=== PATIENT | male | born 1945 | race Caucasian/White ===

== ENCOUNTER 2018-09-20 16:37 | Emergency (ER) | payer BC, OTHER ==
[~2018-09-20] VITALS: Ht 170.2 cm; Wt 80.7 kg
[2018-09-20 16:41] VITALS: BP_SYST 157
[2018-09-20] MEDS ORDERED: ACETAMINOPHEN 500 MG TABLET PO ONE (17:00)
[2018-09-20] MEDS ORDERED: NACL 0.9% 1,000 ML IV ONE (17:00)
[2018-09-20 17:31] LABS: BASOPHILS % (AUTO) 0.6 % (0.0-2.0); EOSINOPHILS # (AUTO) 0.1 K/uL (0.0-0.4); EOSINOPHILS % (AUTO) 0.9 % (0.0-4.0); HEMATOCRIT 33.6 % (36-54); HEMOGLOBIN 11.5 g/dL (14.0-18.0); MEAN CORPUSCULAR HEMOGLOBIN 32 pg (27-31); MEAN CORPUSCULAR HGB CONC 34 % (32-36); MEAN CORPUSCULAR VOLUME 95 fL (79.0-98.0); MONOCYTES # (AUTO) 0.5 K/uL (0.0-1.0); MONOCYTES % (AUTO) 7.8 % (1.7-9.3); NEUTROPHILS # (AUTO) 4.5 K/uL (1.8-7.7); NEUTROPHILS % (AUTO) 73.7 % (40.0-70.0); PLATELET COUNT (AUTO) 174 K/uL (130-430); RED BLOOD CELL COUNT(AUTO) 3.54 MIL/uL (4.2-6.2); RED CELL DISTRIBUTION WIDTH 13.1 % (9.0-15.0); WHITE BLOOD COUNT (AUTO) 6.1 K/uL (4.8-10.8)
[2018-09-20 17:43] LABS: ANION GAP 10 (5-15); CALCIUM 8.9 mg/dL (8.4-11.0); CHLORIDE 99 mmol/L (98-107); CREATININE 2.06 mg/dL (0.55-1.30); POTASSIUM 4.7 mmol/L (3.5-5.1); SODIUM SERUM 132 mmol/L (136-145); UREA NITROGEN, BLOOD 35 mg/dL (8-21)
[2018-09-20 17:45] LABS: ALANINE AMINOTRANSFERASE 22 U/L (12-78); ALBUMIN 3.3 g/dL (3.4-4.8); ASPARTATE AMINOTRANSFERASE 17 U/L (10-37); TOTAL BILIRUBIN 0.2 mg/dL (0.0-1.0)
[2018-09-20 17:52] LABS: GLUCOSE 576 mg/dL (70-99)
[2018-09-20] MEDS ORDERED: INSULIN REGULAR, HUMAN 100 UNITS/ML, 10 ML VIAL SUBCUT ONE (18:00)
[2018-09-20] MEDS ORDERED: AMLO5TAB4 PO (18:45)
[2018-09-20] MEDS ORDERED: AMI200 PO (18:45)
[2018-09-20] MEDS ORDERED: CARV25TA55 PO (18:45)
[2018-09-20] MEDS ORDERED: PARO40TA80 PO (18:45)
[2018-09-20] MEDS ORDERED: LEVE500T9 PO (18:45)
[2018-09-20] MEDS ORDERED: APIX5TAB4 PO (18:45)
[2018-09-20] MEDS ORDERED: FENO160 PO (18:45)
[2018-09-20] MEDS ORDERED: BENA40TA8 PO (18:45)
[2018-09-20] MEDS ORDERED: BACITRACIN 1 GM OINT TP ONE (19:06)
[2018-09-20 19:42] VITALS: BP_SYST 139
[2018-09-20] MEDS ORDERED: LIDOCAINE/EPI 1% 1:100000 20 ML VIAL INJ ONE (23:34)
== END 2018-09-20 19:41 | disposition home or self-care (01) ==
LOC: SED 16:37
DX: S61.412A Laceration without foreign body of left hand, initial encounter (principal); S51.812A Laceration without foreign body of left forearm, initial encounter; S50.811A Abrasion of right forearm, initial encounter; S60.511A Abrasion of right hand, initial encounter; E11.65 Type 2 diabetes mellitus with hyperglycemia; E11.22 Type 2 diabetes mellitus with diabetic chronic kidney disease; N18.9 Chronic kidney disease, unspecified; Z79.899 Other long term (current) drug therapy; V49.49XA Driver injured in collision with other motor vehicles in traffic accident, initial encounter; Y93.89 Activity, other specified; Y92.411 Interstate highway as the place of occurrence of the external cause; Y99.8 Other external cause status
CPT/HCPCS: 36415; 80053; 82962; 85025; 93005; 96361; 96374; 99284; J1815; J7030

== ENCOUNTER 2019-07-20 09:32 | Inpatient (IN) | payer OTHER, SELFPAY ==
[~2019-07-20] VITALS: Ht 170.2 cm; Wt 76.3 kg
[2019-07-20] VITALS (10 sets, daily range): BP systolic 99–136
[~2019-07-20 09:32] MED LIST: AMI200 PO; AMLO5TAB4 PO; APIX5TAB4 PO; BENA40TA8 PO; CARV25TA55 PO; FENO160 PO; LEVE500T9 PO; PARO40TA80 PO
[2019-07-20 10:36] LABS: BASOPHILS % (AUTO) 0.7 % (0.0-2.0); EOSINOPHILS # (AUTO) 0.1 K/uL (0.0-0.4); EOSINOPHILS % (AUTO) 1.6 % (0.0-4.0); HEMATOCRIT 34.7 % (36-54); HEMOGLOBIN 11.4 g/dL (14.0-18.0); LYMPHOCYTES # (AUTO) 1.2 K/uL (1.0-5.5); LYMPHOCYTES % (AUTO) 16.5 % (20.5-51.5); MEAN CORPUSCULAR HEMOGLOBIN 32 pg (27-31); MEAN CORPUSCULAR HGB CONC 33 % (32-36); MEAN CORPUSCULAR VOLUME 96 fL (79.0-98.0); MONOCYTES # (AUTO) 0.6 K/uL (0.0-1.0); MONOCYTES % (AUTO) 8.7 % (1.7-9.3); NEUTROPHILS # (AUTO) 5.1 K/uL (1.8-7.7); NEUTROPHILS % (AUTO) 72.5 % (40.0-70.0); PLATELET COUNT (AUTO) 236 K/uL (130-430); RED BLOOD CELL COUNT(AUTO) 3.62 MIL/uL (4.2-6.2); RED CELL DISTRIBUTION WIDTH 15.6 % (9.0-15.0); WHITE BLOOD COUNT (AUTO) 7.1 K/uL (4.8-10.8)
[2019-07-20 10:42] LABS: ANION GAP 7 (5-15); CALCIUM 9.1 mg/dL (8.4-11.0); CHLORIDE 105 mmol/L (98-107); CREATININE 1.25 mg/dL (0.55-1.30); GLUCOSE 107 mg/dL (70-99); POTASSIUM 3.5 mmol/L (3.5-5.1); SODIUM SERUM 140 mmol/L (136-145); UREA NITROGEN, BLOOD 19 mg/dL (8-21)
[2019-07-20 10:49] LABS: ALANINE AMINOTRANSFERASE 31 U/L (12-78); ALBUMIN 2.8 g/dL (3.4-4.8); ASPARTATE AMINOTRANSFERASE 23 U/L (10-37); TOTAL BILIRUBIN 0.5 mg/dL (0.0-1.0)
[2019-07-20 11:48] LABS: CHOLESTEROL 161 mg/dL (<200); HDL CHOLESTEROL 67 mg/dL (>45); LDL CHOLESTEROL 72 mg/dL (<100); TRIGLYCERIDES 94 mg/dL (30-150)
[2019-07-20] MEDS ORDERED: D5NS 1,000 ML IV ONE (12:00)
[2019-07-20] MEDS ORDERED: cefTRIAXone 1 GM VIAL IM ONE (12:00)
[2019-07-20 12:54] LABS: BILIRUBIN,URINE NEGATIVE (NEGATIVE); BLOOD, URINE NEGATIVE (NEGATIVE); COLOR,URINE YELLOW (YELLOW); GLUCOSE,URINE NEGATIVE (NEGATIVE); KETONES,URINE NEGATIVE (NEGATIVE); LEUKOCYTE ESTERASE ,URINE NEGATIVE (NEGATIVE); NITRITE, URINE NEGATIVE (NEGATIVE); PH,URINE 7.5 (5.0-8.0); PROTEIN URINE 1+ (NEGATIVE); UROBILINOGEN,URINE 0.2 (0.2-1.0)
[2019-07-20 12:57] LABS: CLARITY/URINE SLIGHTLY HAZY (CLEAR)
[2019-07-20 13:11] LABS: RBC,URINE NONE SEEN /HPF (0-3)
[2019-07-20 13:11] LABS: FREE T4 (FREE THYROXINE) 1.5 ng/dl (0.8-1.5); THYROID STIMULATING HORMONE 8.22 uIu/mL (0.36-3.74)
[2019-07-20 13:12] LABS: BACTERIA,URINE RARE /HPF (None Seen); MUCUS,URINE 1+ /LPF (None Seen); WBC,URINE 0-3 /HPF (0-3)
[2019-07-20] MEDS ORDERED: D5W 1,000 ML IV PRN (13:28)
[2019-07-20] MEDS ORDERED: HYDROcodone/ACETAMIN 10-325 MG TAB PO PRN (13:30)
[2019-07-20] MEDS ORDERED: HYDROcodone/ACETAMIN 5-325 MG TAB (NORCO/ VICODIN) PO PRN (13:30)
[2019-07-20] MEDS ORDERED: LORazepam 2 MG/ML VIAL IVP PRN (13:30)
[2019-07-20] MEDS ORDERED: GLUCOSE 15 GM GEL (in 37.5 GM TUBE) PO PRN (13:30)
[2019-07-20] MEDS ORDERED: ONDANSETRON HCL 4 MG/2 ML VIAL IVP PRN (13:30)
[2019-07-20] MEDS ORDERED: ACETAMINOPHEN 325 MG TABLET PO PRN (13:30)
[2019-07-20] MEDS ORDERED: DEXTROSE 50% JECT 50 ML DISP.SYRIN IVP PRN (13:30)
[2019-07-20] MEDS: APIXABAN 2.5 MG TABLET PO SCH (20:27)
[2019-07-20] MEDS: levETIRAcetam 500 MG TABLET PO SCH (20:27)
[2019-07-20] MEDS: INSULIN REGULAR, HUMAN 100 UNITS/ML, 10 ML VIAL (humuLIN R) SUBCUT PRN (20:46)
[2019-07-20] MEDS ORDERED: CARVEDILOL 25 MG TABLET (COREG) PO SCH (21:00)
[2019-07-20] MEDS: D5NS 1,000 ML IV SCH (21:03)
[2019-07-21] VITALS (19 sets, daily range): BP systolic 109–157
[2019-07-21] MEDS: D5NS 1,000 ML IV SCH ×2 (06:10→17:13)
[2019-07-21] MEDS: INSULIN REGULAR, HUMAN 100 UNITS/ML, 10 ML VIAL (humuLIN R) SUBCUT PRN ×4 (06:21→21:15)
[2019-07-21 06:32] LABS: BASOPHILS % (AUTO) 0.5 % (0.0-2.0); EOSINOPHILS # (AUTO) 0.1 K/uL (0.0-0.4); EOSINOPHILS % (AUTO) 0.7 % (0.0-4.0); HEMATOCRIT 32.8 % (36-54); HEMOGLOBIN 10.7 g/dL (14.0-18.0); LYMPHOCYTES # (AUTO) 0.9 K/uL (1.0-5.5); LYMPHOCYTES % (AUTO) 10.8 % (20.5-51.5); MEAN CORPUSCULAR HEMOGLOBIN 32 pg (27-31); MEAN CORPUSCULAR HGB CONC 33 % (32-36); MEAN CORPUSCULAR VOLUME 98 fL (79.0-98.0); MONOCYTES # (AUTO) 0.9 K/uL (0.0-1.0); MONOCYTES % (AUTO) 11.6 % (1.7-9.3); NEUTROPHILS # (AUTO) 6.1 K/uL (1.8-7.7); NEUTROPHILS % (AUTO) 76.4 % (40.0-70.0); PLATELET COUNT (AUTO) 190 K/uL (130-430); RED BLOOD CELL COUNT(AUTO) 3.35 MIL/uL (4.2-6.2); RED CELL DISTRIBUTION WIDTH 15.7 % (9.0-15.0); WHITE BLOOD COUNT (AUTO) 7.9 K/uL (4.8-10.8)
[2019-07-21 06:51] LABS: ANION GAP 7 (5-15); CALCIUM 7.9 mg/dL (8.4-11.0); CHLORIDE 109 mmol/L (98-107); CREATININE 1.08 mg/dL (0.55-1.30); GLUCOSE 188 mg/dL (70-99); POTASSIUM 4.2 mmol/L (3.5-5.1); SODIUM SERUM 139 mmol/L (136-145); THYROID STIMULATING HORMONE 2.21 uIu/mL (0.36-3.74); UREA NITROGEN, BLOOD 14 mg/dL (8-21)
[2019-07-21] MEDS: AMIODARONE HCL 200 MG TABLET PO SCH (08:11)
[2019-07-21] MEDS: levETIRAcetam 500 MG TABLET PO SCH ×2 (08:11→21:18)
[2019-07-21] MEDS: LISINOPRIL 20 MG TABLET PO SCH (08:12)
[2019-07-21] MEDS: amLODIPine BESYLATE 5 MG TABLET PO SCH (08:12)
[2019-07-21] MEDS: PARoxetine HCL 20 MG TABLET PO SCH (08:13)
[2019-07-21] MEDS: CARVEDILOL 12.5 MG TABLET (COREG) PO SCH ×2 (08:13→21:18)
[2019-07-21] MEDS: APIXABAN 2.5 MG TABLET PO SCH ×2 (08:14→21:16)
[2019-07-21] MEDS ORDERED: BENAZEPRIL HCL 20 MG TABLET (LOTENSIN) PO SCH (09:00)
[2019-07-21] MEDS ORDERED: FENOFIBRATE 160 MG TABLET PO SCH (09:00)
[2019-07-21] MEDS: cefTRIAXone 1 GM in D5W 50 ML IV SCH (14:06)
[2019-07-21] MEDS: INSULIN GLARGINE 100 UNITS/ML 10 ML VIAL SUBCUT SCH (21:16)
[2019-07-22] MEDS: D5NS 1,000 ML IV SCH ×4 (03:45→23:03)
[2019-07-22 04:00] VITALS: BP_SYST 143
[2019-07-22] MEDS: INSULIN REGULAR, HUMAN 100 UNITS/ML, 10 ML VIAL (humuLIN R) SUBCUT PRN ×3 (06:37→21:07)
[2019-07-22 07:28] LABS: BASOPHILS # (AUTO) 0.1 K/uL (0.0-0.2); BASOPHILS % (AUTO) 0.9 % (0.0-2.0); EOSINOPHILS # (AUTO) 0.1 K/uL (0.0-0.4); EOSINOPHILS % (AUTO) 2.4 % (0.0-4.0); HEMATOCRIT 31.2 % (36-54); HEMOGLOBIN 10.4 g/dL (14.0-18.0); LYMPHOCYTES % (AUTO) 17.4 % (20.5-51.5); MEAN CORPUSCULAR HEMOGLOBIN 32 pg (27-31); MEAN CORPUSCULAR HGB CONC 34 % (32-36); MEAN CORPUSCULAR VOLUME 96 fL (79.0-98.0); MONOCYTES # (AUTO) 0.7 K/uL (0.0-1.0); NEUTROPHILS # (AUTO) 3.7 K/uL (1.8-7.7); NEUTROPHILS % (AUTO) 67.3 % (40.0-70.0); PLATELET COUNT (AUTO) 187 K/uL (130-430); RED BLOOD CELL COUNT(AUTO) 3.25 MIL/uL (4.2-6.2); RED CELL DISTRIBUTION WIDTH 15.5 % (9.0-15.0); WHITE BLOOD COUNT (AUTO) 5.6 K/uL (4.8-10.8)
[2019-07-22 08:01] LABS: ALANINE AMINOTRANSFERASE 16 U/L (12-78); ALBUMIN 1.9 g/dL (3.4-4.8); ANION GAP 4 (5-15); ASPARTATE AMINOTRANSFERASE 15 U/L (10-37); C-REACTIVE PROTEIN QUANT 1.9 mg/dL (0-0.5); CALCIUM 7.8 mg/dL (8.4-11.0); CHLORIDE 105 mmol/L (98-107); GLUCOSE 195 mg/dL (70-99); POTASSIUM 3.5 mmol/L (3.5-5.1); SODIUM SERUM 134 mmol/L (136-145); TOTAL BILIRUBIN 0.4 mg/dL (0.0-1.0); UREA NITROGEN, BLOOD 11 mg/dL (8-21)
[2019-07-22] MEDS: AMIODARONE HCL 200 MG TABLET PO SCH (08:28)
[2019-07-22] MEDS: CARVEDILOL 12.5 MG TABLET (COREG) PO SCH ×2 (08:29→21:14)
[2019-07-22] MEDS: APIXABAN 2.5 MG TABLET PO SCH ×2 (08:29→21:05)
[2019-07-22] MEDS: levETIRAcetam 500 MG TABLET PO SCH ×2 (08:29→21:02)
[2019-07-22] MEDS: amLODIPine BESYLATE 5 MG TABLET PO SCH (08:29)
[2019-07-22 08:30] VITALS: BP_SYST 125
[2019-07-22] MEDS: PARoxetine HCL 20 MG TABLET PO SCH (08:30)
[2019-07-22] MEDS: LISINOPRIL 20 MG TABLET PO SCH (08:30)
[2019-07-22 08:53] LABS: ERYTHROCYTE SEDIMENTATION RATE 87 MM/HR (0-15)
[2019-07-22 12:02] VITALS: BP_SYST 137
[2019-07-22] MEDS ORDERED: LIP20 PO (12:18)
[2019-07-22] MEDS: cefTRIAXone 1 GM in D5W 50 ML IV SCH (12:27)
[2019-07-22 15:25] VITALS: BP_SYST 153
[2019-07-22 16:18] VITALS: BP_SYST 153
[2019-07-22] MEDS: INSULIN GLARGINE 100 UNITS/ML 10 ML VIAL SUBCUT SCH (21:08)
[2019-07-23] VITALS: BP_SYST 132
[2019-07-23] MEDS ORDERED: VANCOMYCIN HCL 1 GM/NS PREMIX 250 ML IV ONE (01:00)
[2019-07-23] MEDS ORDERED: VANCOMYCIN HCL 1000 MG/VIAL IV ONE (04:49)
[2019-07-23 08:00] VITALS: BP_SYST 138
[2019-07-23] MEDS: PARoxetine HCL 20 MG TABLET PO SCH (08:30)
[2019-07-23] MEDS: amLODIPine BESYLATE 5 MG TABLET PO SCH (08:30)
[2019-07-23] MEDS: levETIRAcetam 500 MG TABLET PO SCH (08:31)
[2019-07-23] MEDS: APIXABAN 2.5 MG TABLET PO SCH (08:31)
[2019-07-23] MEDS: AMIODARONE HCL 200 MG TABLET PO SCH (08:32)
[2019-07-23] MEDS ORDERED: PIPERACILLIN/TAZO 3.375/DEX-IS 50 ML IV SCH (09:30)
[2019-07-23] MEDS ORDERED: levETIRAcetam 500 MG TABLET PO ONE (09:45)
[2019-07-23] MEDS: CARVEDILOL 12.5 MG TABLET (COREG) PO SCH (11:47)
[2019-07-23] MEDS: LISINOPRIL 20 MG TABLET PO SCH (11:48)
[2019-07-23 12:00] VITALS: BP_SYST 136
[2019-07-23 15:15] VITALS: BP_SYST 135
[2019-07-23] MEDS ORDERED: VANCOMYCIN HCL 750 MG in NS 250 ML IV SCH (17:00)
[2019-07-23] MEDS ORDERED: levETIRAcetam 500 MG TABLET PO SCH (21:00)
== END 2019-07-23 16:45 | disposition home or self-care (01) | DRG 637 ==
LOC: SED 09:32 → EEVIPCON 11:58 → SMU 11:58 → SIC 15:03 → SMU 07-21 15:42 → STU 07-21 17:02
PROVIDERS: ADMIT Internal Medicine Hospice and Palliative Medicine; ATTEND Internal Medicine Hospice and Palliative Medicine
DX: E11.649 Type 2 diabetes mellitus with hypoglycemia without coma (principal); G93.41 Metabolic encephalopathy; J96.00 Acute respiratory failure, unspecified whether with hypoxia or hypercapnia; E43 Unspecified severe protein-calorie malnutrition; E83.52 Hypercalcemia; D64.9 Anemia, unspecified; I48.91 Unspecified atrial fibrillation; E11.65 Type 2 diabetes mellitus with hyperglycemia; E83.51 Hypocalcemia; I11.9 Hypertensive heart disease without heart failure; T68.XXXA Hypothermia, initial encounter; E66.9 Obesity, unspecified; Z20.828 Contact with and (suspected) exposure to other viral communicable diseases; E78.5 Hyperlipidemia, unspecified; I25.10 Atherosclerotic heart disease of native coronary artery without angina pectoris; Z79.01 Long term (current) use of anticoagulants; Z79.899 Other long term (current) drug therapy; Z85.828 Personal history of other malignant neoplasm of skin; Z68.26 Body mass index [BMI] 26.0-26.9, adult
CPT/HCPCS: 36415; 36600; 70551; 71045; 72141; 80048; 80053; 80061; 81000-TC; 82550-TC; 82803-TC; 82962; 83036; 83605; 83880; 84439; 84443-TC; 84484; 85025; 85651-TC; 86140; 87040-TC; 87081; 93005; 93306; 96360; 96372; 99291; 99292; G0378; J0696; J1815; J2543; J3370; J7042; J7050; J7060; U0003-CS

== ENCOUNTER 2021-01-01 18:13 | Inpatient (IN) | payer OTHER, SELFPAY ==
[~2021-01-01] VITALS: Ht 172.7 cm; Wt 91.2 kg
[~2021-01-01 18:13] MED LIST changes: -AMI200 PO; +AMIO200T66 PO; +LIP20 PO; -PARO40TA80 PO
--- NOTE | 2021-01-01 18:25 | NUR ---
Placed in room 6 . Placed on cheese packer, blood pressure machine and pulse oximeter. To gown for exam. Side rails up. Report given to ILAN Louise.
--- NOTE | 2021-01-01 18:29 | NUR ---
Triaged and placed in room 6 for evaluation
--- NOTE | 2021-01-01 18:30 | NUR ---
Patient BIB son for chief complaint riley LE swelling. Fluid noted coming from both legs. Patient also dyspneic upon arrival to room; not on home O2. Placed on 6L via nasal cannula; oxygen saturation improved to 94% from 87%. EKG completed. BP and respiratory rate elevated. Placed on cafeteria monitor. Will continue to monitor.
--- NOTE | 2021-01-01 18:32 | NUR ---
Dr Hassan to bedside to evaluate patient
[2021-01-01 18:33] VITALS: BP_SYST 184
[2021-01-01] MEDS ORDERED: FUROSEMIDE 100 MG/10 ML VIAL IVP ONE (18:45)
--- NOTE | 2021-01-01 18:58 | NUR ---
RT at bedside to collect ABG
--- NOTE | 2021-01-01 18:59 | NUR ---
# 18 gauge angiocath placed to R AC. Use of asceptic technique. Opsite placed over site. Blood return noted. Blood for lab drawn from site. Flushed with 10 cc of normal saline. No evidence of infiltration noted. Patient tolerated well.
[2021-01-01] MEDS ORDERED: PIPERACILLIN/TAZO 3.375 GM in NS 50 ML IV ONE (19:00)
[2021-01-01] MEDS ORDERED: VANCOMYCIN HCL 1,000 MG in NS 250 ML IV ONE (19:00)
[2021-01-01] MEDS ORDERED: PIPERACILLIN/TAZOBACTAM 3.375 GM/VIAL (ZOSYN) IV ONE (19:05)
[2021-01-01] MEDS ORDERED: VANCOMYCIN HCL 1000 MG/VIAL IV ONE (19:05)
[2021-01-01] MEDS ORDERED: NITROGLYCERIN 250 ML IV ONE (19:15)
--- NOTE | 2021-01-01 19:16 | NUR ---
COVID swab collected at bedside and sent to lab. Report given to Yang TALAVERA to assume care.
--- NOTE | 2021-01-01 19:35 | NUR ---
# 22 gauge angiocath placed to l wrist. Use of asceptic technique. Opsite placed over site. Blood for lab drawn from site. Flushed with 10 cc of normal saline. No evidence of infiltration noted. Patient tolerated well.
--- NOTE | 2021-01-01 19:41 | NUR ---
assumed care of pt from [facility]
[2021-01-01 19:45] LABS: BASOPHILS # (AUTO) 0.1 K/uL (0.0-0.2); BASOPHILS % (AUTO) 0.7 % (0.0-2.0); EOSINOPHILS # (AUTO) 0.1 K/uL (0.0-0.4); EOSINOPHILS % (AUTO) 1.5 % (0.0-4.0); HEMATOCRIT 30.9 % (36-54); HEMOGLOBIN 10.4 g/dL (14.0-18.0); LYMPHOCYTES # (AUTO) 0.7 K/uL (1.0-5.5); MEAN CORPUSCULAR HEMOGLOBIN 33 pg (27-31); MEAN CORPUSCULAR HGB CONC 34 % (32-36); MEAN CORPUSCULAR VOLUME 97 fL (79.0-98.0); MONOCYTES # (AUTO) 0.5 K/uL (0.0-1.0); MONOCYTES % (AUTO) 6.8 % (1.7-9.3); NEUTROPHILS # (AUTO) 6.7 K/uL (1.8-7.7); PLATELET COUNT (AUTO) 164 K/uL (130-430); RED BLOOD CELL COUNT(AUTO) 3.19 MIL/uL (4.2-6.2); RED CELL DISTRIBUTION WIDTH 13.7 % (9.0-15.0); WHITE BLOOD COUNT (AUTO) 8.1 K/uL (4.8-10.8)
--- NOTE | 2021-01-01 20:00 | NUR ---
# 16 FR Thorne catheter with use of sterile technique. Immediate return of 500 cc YELLOW urine noted. Bedside drainage bag placed below level of bladder. Urine sample collected and sent to lab. Pt tolerated procedure WELL.
[2021-01-01 20:05] LABS: ANION GAP 6 (5-15); CALCIUM 9.3 mg/dL (8.4-11.0); CHLORIDE 110 mmol/L (98-107); GLUCOSE 182 mg/dL (70-99); POTASSIUM 4.4 mmol/L (3.5-5.1); SODIUM SERUM 143 mmol/L (136-145); UREA NITROGEN, BLOOD 36 mg/dL (8-21)
[2021-01-01 20:12] LABS: ALANINE AMINOTRANSFERASE 38 U/L (12-78); ASPARTATE AMINOTRANSFERASE 30 U/L (10-37); TOTAL BILIRUBIN 0.6 mg/dL (0.0-1.0)
[2021-01-01 20:13] LABS: PROTHROMBIN TIME 10.7 SECS (9.5-12.5)
[2021-01-01] MEDS ORDERED: DOCU-144 PO (20:17)
[2021-01-01] MEDS ORDERED: BENA40TA65 PO (20:17)
[2021-01-01] MEDS ORDERED: AMLO5TAB4 PO (20:17)
[2021-01-01] MEDS ORDERED: LIP20 PO (20:17)
[2021-01-01] MEDS ORDERED: COR12.5 PO (20:17)
[2021-01-01] MEDS ORDERED: ACET12.55 PO (20:17)
[2021-01-01] MEDS ORDERED: AMIO200T66 PO (20:17)
[2021-01-01] MEDS ORDERED: APIX5TAB PO (20:17)
--- NOTE | 2021-01-01 20:24 | NUR ---
Perez-SON [phone]
--- NOTE | 2021-01-01 20:24 | NUR ---
Pt is full code
--- NOTE | 2021-01-01 20:27 | NUR ---
Medication reconciliation completed with information provided by son. Any prior medication reconciliation on file was reviewed and corrected.
--- NOTE | 2021-01-01 20:27 | NUR ---
belongings list complete
[2021-01-01 20:40] LABS: BILIRUBIN,URINE NEGATIVE (NEGATIVE); BLOOD, URINE 1+ (NEGATIVE); CLARITY/URINE CLEAR (CLEAR); COLOR,URINE YELLOW (YELLOW); GLUCOSE,URINE NEGATIVE (NEGATIVE); KETONES,URINE NEGATIVE (NEGATIVE); LEUKOCYTE ESTERASE ,URINE NEGATIVE (NEGATIVE); NITRITE, URINE NEGATIVE (NEGATIVE); PROTEIN URINE 1+ (NEGATIVE); UROBILINOGEN,URINE 0.2 (0.2-1.0)
[2021-01-01 20:58] LABS: BACTERIA,URINE None Seen /HPF (None Seen); MUCUS,URINE None Seen /LPF (None Seen); RBC,URINE 0-3 /HPF (0-3); WBC,URINE NONE SEEN /HPF (0-3)
[2021-01-01] MEDS ORDERED: BACITRACIN 1 GM OINT TP ONE (21:06)
--- NOTE | 2021-01-01 22:01 | NUR ---
Spoke to Dr. Warren. Will titrate Nitro to 2mcg/min and discontinue prior to transfer to floor.
[2021-01-01] MEDS ORDERED: HYDROcodone/ACETAMIN 5-325 MG TAB (NORCO/ VICODIN) PO PRN (23:30)
[2021-01-01] MEDS ORDERED: MORPHINE 4 MG INJ. 4 MG/ML VIAL IVP PRN (23:30)
[2021-01-01] MEDS ORDERED: NALOXONE HCL 0.4 MG/ML AMP (NARCAN) IVP PRN (23:30)
[2021-01-01] MEDS ORDERED: ACETAMINOPHEN 325 MG TABLET PO PRN (23:30)
--- NOTE | 2021-01-01 23:44 | NUR ---
Transfer to 114b via ACLS protocol. Licensed nurse present. IV present no signs or symptoms of infiltration.
[2021-01-01] MEDS ORDERED: hydrALAZINE HCL 20 MG/ML VIAL IVP PRN (23:45)
--- NOTE | 2021-01-02 00:05 | NUR ---
ADMIT NOTE Received pt from ER to the floor with a diagnosis of CHF. Admission process initiated. patient oriented to pain management, safety and call light-teach back done.
[2021-01-02 00:25] VITALS: BP_SYST 157
[2021-01-02] MEDS: ALBUTEROL SULFATE 0.083% 2.5 MG/3 ML VIAL.NEB INH PRN (00:58)
--- NOTE | 2021-01-02 01:02 | NUR ---
CONSULTATION CALLED FOR DR. PONCE FOR CONSULT OF CHF ORDER BY DR. CORTEZ SPOKE WITH TAY
--- NOTE | 2021-01-02 02:07 | NUR ---
initial notes pt is awake, alert, oriented x 3, c/o sob and bilateral leg swelling, both legs is also weeping with clear liquid. stable vital sign. explain plan of care,orient to room and call light. pt verbalized understanding. call light in reach. will monitor.
[2021-01-02 02:15] VITALS: BP_SYST 157
[2021-01-02 03:11] VITALS: BP_SYST 134
[2021-01-02] MEDS: NORMAL SALINE 5 ML DISP.SYRIN IVF SCH ×3 (05:37→22:00)
--- NOTE | 2021-01-02 06:16 | NUR ---
closing: pt is awake, alert. stable. on 4l Oxymizer, tolerating well. needs attended the whole shift, call with the pt. will continue to monitor until sbar reporting given to am rn.
[2021-01-02 06:32] LABS: BASOPHILS % (AUTO) 0.3 % (0.0-2.0); EOSINOPHILS % (AUTO) 0.1 % (0.0-4.0); HEMATOCRIT 29.8 % (36-54); HEMOGLOBIN 10.1 g/dL (14.0-18.0); LYMPHOCYTES # (AUTO) 0.4 K/uL (1.0-5.5); LYMPHOCYTES % (AUTO) 3.8 % (20.5-51.5); MEAN CORPUSCULAR HEMOGLOBIN 33 pg (27-31); MEAN CORPUSCULAR HGB CONC 34 % (32-36); MEAN CORPUSCULAR VOLUME 97 fL (79.0-98.0); MONOCYTES # (AUTO) 0.7 K/uL (0.0-1.0); MONOCYTES % (AUTO) 6.3 % (1.7-9.3); NEUTROPHILS # (AUTO) 9.6 K/uL (1.8-7.7); NEUTROPHILS % (AUTO) 89.5 % (40.0-70.0); PLATELET COUNT (AUTO) 152 K/uL (130-430); RED BLOOD CELL COUNT(AUTO) 3.07 MIL/uL (4.2-6.2); RED CELL DISTRIBUTION WIDTH 14.1 % (9.0-15.0); WHITE BLOOD COUNT (AUTO) 10.7 K/uL (4.8-10.8)
[2021-01-02 08:00] VITALS: BP_SYST 128
[2021-01-02] MEDS: FUROSEMIDE 40 MG TABLET PO SCH (08:04)
--- NOTE | 2021-01-02 11:47 | NUR ---
Nutrition Update Ravinder Scale 16 noted. Pt admitted for CHF. Diet: regular BMI: 29.6 kg/m2 RD to follow per nutrition care standards.
[2021-01-02 12:00] VITALS: BP_SYST 139
[2021-01-02] MEDS ORDERED: ACETAMINOPHEN 325 MG TABLET PO PRN (12:15)
[2021-01-02] MEDS ORDERED: HYDROcodone/ACETAMIN 10-325 MG TAB PO PRN (12:15)
[2021-01-02] MEDS ORDERED: ONDANSETRON HCL 4 MG/2 ML VIAL IVP PRN (12:15)
[2021-01-02] MEDS ORDERED: NALOXONE HCL 0.4 MG/ML AMP (NARCAN) IVP PRN ×2 (12:15)
[2021-01-02] MEDS ORDERED: HYDROcodone/ACETAMIN 5-325 MG TAB (NORCO/ VICODIN) PO PRN (12:15)
[2021-01-02] MEDS ORDERED: LORazepam 2 MG/ML VIAL IVP PRN (12:15)
--- NOTE | 2021-01-02 12:30 | NUR ---
CONSULTATION PAGED REASON FOR CONSULTATION:CELLULITIS WAS CONSULT CALED?Y PERSON WHO WAS NOTIFIED:GONZÁLEZ CONSULTING PHYSICIAN:ERIC VALLEJO PEGGER SPECIALTY:INFECTIOUS DISEASE PEGGER PHONE NUMBER:[phone] REQUESTING PHYSICIAN:GRETCHEN BUSTAMANTE
--- NOTE | 2021-01-02 12:36 | NUR ---
CONSULTATION PAGED REASON FOR CONSULTATION:PEG WAS CONSULT CALED?Y PERSON WHO WAS NOTIFIEDSTEPHANIE: CONSULTING PHYSICIAN:CATRACHO BROOKS (SUSANNE RAMIREZ TESTS SUPERINTENDENT) STORE CLERK SPECIALTY:NEPHRO STORE CLERK PHONE [phone]: REQUESTING PHYSICIAN:GRETCHEN BUSTAMANTE
[2021-01-02 13:18] LABS: POTASSIUM 4.2 mmol/L (3.5-5.1); SODIUM SERUM 141 mmol/L (136-145)
[2021-01-02 13:19] LABS: ANION GAP 12 (5-15); ASPARTATE AMINOTRANSFERASE 25 U/L (10-37); CALCIUM 8.2 mg/dL (8.4-11.0); CHLORIDE 107 mmol/L (98-107); CREATININE 1.91 mg/dL (0.55-1.30); GLUCOSE 202 mg/dL (70-99); TOTAL BILIRUBIN 0.6 mg/dL (0.0-1.0); UREA NITROGEN, BLOOD 35 mg/dL (8-21)
[2021-01-02 13:20] LABS: ALANINE AMINOTRANSFERASE 30 U/L (12-78); ALBUMIN 2.8 g/dL (3.4-4.8)
--- NOTE | 2021-01-02 15:19 | NUR ---
P.T. NOTES P.T. EVAL COMPLETED; REFER TO EVAL FOR DETAILS.
[2021-01-02] MEDS ORDERED: ALBUMIN HUMAN 25% 100 ML IV ONE (15:45)
[2021-01-02 16:00] VITALS: BP_SYST 134
--- NOTE | 2021-01-02 17:33 | NUR ---
1733 Spoke to Eriberto Rice to report trop=0.330. No new orders made by .
[2021-01-02] MEDS: PIPERACILLIN/TAZO 3.375/DEX-IS 50 ML IV SCH ×2 (17:56→23:31)
--- NOTE | 2021-01-02 19:10 | NUR ---
OPENING NOTES PATIENT RESTING, HOB ELEVATED. NO SIGNS OF RESPIRATORY DISTRESS NOTED. CALL LIGHT WITHIN REACH, BED ALARM ON, BED AT LOWEST POSITION, BED LOCKED. CERDA CATHETER IN PLACE, NO KINKS, NO LOOPS, BAG NOT TOUCHING THE FLOOR. DISCUSSED PLAN OF CARE WITH PATIENT. FALL, RESPIRATORY, ASPIRATION AND SAFETY PRECAUTIONS IN PLACE. WILL CONTINUE TO MONITOR.
[2021-01-02] MEDS: levETIRAcetam 500 MG TABLET PO SCH (20:36)
[2021-01-02] MEDS: DOCUSATE SODIUM 100 MG CAPSULE PO SCH (20:36)
[2021-01-02] MEDS: ATORVASTATIN 20 MG TABLET PO SCH (20:36)
[2021-01-02] MEDS: lisinopriL 20 MG TABLET PO SCH (20:38)
[2021-01-02] MEDS: CARVEDILOL 6.25 MG TABLET (COREG) PO SCH (20:39)
[2021-01-02] MEDS: APIXABAN 2.5 MG TABLET PO SCH (20:40)
[2021-01-02] MEDS ORDERED: BENAZEPRIL HCL 20 MG TABLET (LOTENSIN) PO SCH (21:00)
--- NOTE | 2021-01-02 22:30 | NUR ---
SPOKE TO WILMER LU. UPDATED ON PATIENT'S STATUS AND SON HOPES TO SPEAK TO CARDIOLOGY CONSULT AND PULMONARY CONSULT.
--- NOTE | 2021-01-02 23:53 | NUR ---
VOICEMAIL LEFT WITH DR. KOROMA, AWAITING CALL BACK.
--- NOTE | 2021-01-03 00:05 | NUR ---
SPOKE TO DR. KOROMA, RECEIVED NEW ORDERS FOR ACCU CHECK ACHS WITH SLIDING SCALE OF REGULAR INSULIN, UPDATED THAT PATIENT HAS BLOOD SUGAR OF 203.
--- NOTE | 2021-01-03 00:08 | NUR ---
HIGH ALERT NOTE: Called Dr. KOROMA back at [phone] identified within the medical roster to verify physician authenticity.
[2021-01-03] MEDS ORDERED: GLUCOSE (DEXTROSE) ORAL GEL -Adults PO PRN (00:15)
[2021-01-03] MEDS ORDERED: DEXTROSE 50% JECT 50 ML DISP.SYRIN IVP PRN (00:15)
--- NOTE | 2021-01-03 00:24 | NUR ---
PATIENT RESTING, EYES CLOSED. NO DISTRESS NOTED. WILL CONTINUE TO MONITOR.
[2021-01-03 00:29] VITALS: BP_SYST 125
[2021-01-03] MEDS: INSULIN REGULAR, HUMAN 100 UNITS/ML, 10 ML VIAL (humuLIN R) SUBCUT PRN ×3 (00:29→17:24)
[2021-01-03] MEDS: ALBUTEROL SULFATE 0.083% 2.5 MG/3 ML VIAL.NEB INH PRN ×4 (01:13→11:12)
[2021-01-03] MEDS: NORMAL SALINE 5 ML DISP.SYRIN IVF SCH ×3 (06:03→12:23)
[2021-01-03] MEDS: PIPERACILLIN/TAZO 3.375/DEX-IS 50 ML IV SCH ×3 (06:03→17:17)
--- NOTE | 2021-01-03 07:10 | NUR ---
CLOSING NOTES PATIENT RESTING, HOB ELEVATED. NO SIGNS OF RESPIRATORY DISTRESS NOTED. CALL LIGHT WITHIN REACH, BED ALARM ON, BED AT LOWEST POSITION, BED LOCKED. CERDA CATHETER IN PLACE, NO KINKS, NO LOOPS, BAG NOT TOUCHING THE FLOOR. FALL, RESPIRATORY, ASPIRATION AND SAFETY PRECAUTIONS IN PLACE THROUGHOUT SHIFT. ALL NEEDS MET THROUGHOUT SHIFT. WILL ENDORSE CARE TO ONCOMING SHIFT.
[2021-01-03 07:25] LABS: BASOPHILS % (AUTO) 0.5 % (0.0-2.0); EOSINOPHILS # (AUTO) 0.1 K/uL (0.0-0.4); EOSINOPHILS % (AUTO) 0.7 % (0.0-4.0); HEMATOCRIT 26.4 % (36-54); HEMOGLOBIN 8.9 g/dL (14.0-18.0); LYMPHOCYTES # (AUTO) 0.5 K/uL (1.0-5.5); LYMPHOCYTES % (AUTO) 4.8 % (20.5-51.5); MEAN CORPUSCULAR HEMOGLOBIN 33 pg (27-31); MEAN CORPUSCULAR HGB CONC 34 % (32-36); MEAN CORPUSCULAR VOLUME 97 fL (79.0-98.0); MONOCYTES # (AUTO) 0.7 K/uL (0.0-1.0); MONOCYTES % (AUTO) 7.9 % (1.7-9.3); NEUTROPHILS # (AUTO) 8.2 K/uL (1.8-7.7); NEUTROPHILS % (AUTO) 86.1 % (40.0-70.0); PLATELET COUNT (AUTO) 139 K/uL (130-430); RED BLOOD CELL COUNT(AUTO) 2.73 MIL/uL (4.2-6.2); RED CELL DISTRIBUTION WIDTH 14.1 % (9.0-15.0); WHITE BLOOD COUNT (AUTO) 9.5 K/uL (4.8-10.8)
[2021-01-03 08:00] VITALS: BP_SYST 121
[2021-01-03] MEDS ORDERED: amLODIPine BESYLATE 5 MG TABLET PO SCH (09:00)
[2021-01-03] MEDS ORDERED: FENOFIBRATE 160 MG TABLET PO SCH (09:00)
[2021-01-03] MEDS ORDERED: AMIODARONE HCL 200 MG TABLET PO SCH (09:00)
[2021-01-03] MEDS: DOCUSATE SODIUM 100 MG CAPSULE PO SCH (09:37)
[2021-01-03] MEDS: APIXABAN 2.5 MG TABLET PO SCH (09:38)
[2021-01-03] MEDS: FENOFIBRATE NANOCRYSTALLIZED 48 MG TABLET (TRICOR) PO SCH (09:39)
[2021-01-03] MEDS: FUROSEMIDE 40 MG TABLET PO SCH (09:39)
[2021-01-03] MEDS: levETIRAcetam 500 MG TABLET PO SCH (09:40)
[2021-01-03] MEDS: CARVEDILOL 6.25 MG TABLET (COREG) PO SCH ×2 (09:40→23:57)
[2021-01-03 09:44] LABS: ALANINE AMINOTRANSFERASE 24 U/L (12-78); ALBUMIN 2.6 g/dL (3.4-4.8); ANION GAP 8 (5-15); ASPARTATE AMINOTRANSFERASE 15 U/L (10-37); C-REACTIVE PROTEIN QUANT 7.7 mg/dL (0-0.5); CHLORIDE 106 mmol/L (98-107); CHOLESTEROL 90 mg/dL (<200); CREATININE 2.47 mg/dL (0.55-1.30); GLUCOSE 169 mg/dL (70-99); HDL CHOLESTEROL 56 mg/dL (>45); LDL CHOLESTEROL 36 mg/dL (<100); PHOSPHORUS 6.3 mg/dL (2.7-4.5); POTASSIUM 4.3 mmol/L (3.5-5.1); SODIUM SERUM 140 mmol/L (136-145); TOTAL BILIRUBIN 0.5 mg/dL (0.0-1.0); TRIGLYCERIDES 70 mg/dL (30-150); UREA NITROGEN, BLOOD 41 mg/dL (8-21)
--- NOTE | 2021-01-03 10:30 | NUR ---
LOW O2 AND INCREASED WOB CHANGED PTS O2 FROM OXIMIZER TO MASK DUE TO O2 SAT OF 87% AND INCREASED WOB. CALLED RT TO ASSESS PT AND AND POSSIBLE BREATHING TREATMENT. WILL CONTINUE TO MONITOR.
--- NOTE | 2021-01-03 11:00 | NUR ---
RT NOTE: 1030 Called to bedside for HHN tx due to SpO2 low and WOB increased. Tx given, SpO2 improved but SOB and WOB is unchanged. Suggested BiPAP at this time to support WOB. 1100 Placed on BiPAP on charted settings. Pt is tolerating settings well. WOB is slightly better. RN made aware of settings. Will continue to monitor pt. Addendum: 01/03/21 at 1119 by Olivia Johnson RT Amended: Links added.
[2021-01-03 11:37] LABS: ERYTHROCYTE SEDIMENTATION RATE 62 MM/HR (0-15)
[2021-01-03 12:00] VITALS: BP_SYST 75
[2021-01-03 13:17] LABS: THYROID STIMULATING HORMONE 7.43 uIu/mL (0.36-3.74)
--- NOTE | 2021-01-03 13:30 | NUR ---
ANNIE CARDIA AND LOW BP: PTS HR @32BPM AND BP 75/36. PT ALERT AND ORIENTED, NAD. PT PUT IN [place]. DR PNOCE MADE AWARE AND NEW ORDERS RECEIVED AND CARRIED OUT.
[2021-01-03] MEDS ORDERED: ALBUMIN HUMAN 25% 100 ML IV ONE (13:45)
--- NOTE | 2021-01-03 15:15 | NUR ---
RT NOTE: 1515 Pt taken off of BiPAP at this time and placed on4LPM oxymizer. SpO2 is in low 90s. Pt is alert and awake, BiPAP is on standby. Tolerating oxymizer at this time. ILAN Brown made aware.
[2021-01-03 16:00] VITALS: BP_SYST 126
--- NOTE | 2021-01-03 17:30 | NUR ---
IV OUT: R AC IV PULLED OUT AND BLED ALL OVER THE PT AND HIS BED. PT BEGAN TO HYPERVENTILATE AND HIS O2 SATURATION DROPPED, HE WAS PUT BACK ON THE BIPAP. O2 SAT SLOWLY REGAINED WNL. WILL CONTINUE TO MONITOR.
[2021-01-03 20:00] VITALS: BP_SYST 126
[2021-01-03] MEDS: lisinopriL 20 MG TABLET PO SCH (23:59)
[2021-01-04] MEDS: APIXABAN 2.5 MG TABLET PO SCH ×2 (00:01→08:55)
[2021-01-04] MEDS: levETIRAcetam 500 MG TABLET PO SCH ×3 (00:02→23:57)
[2021-01-04] MEDS: PIPERACILLIN/TAZO 3.375/DEX-IS 50 ML IV SCH ×2 (00:03→06:39)
[2021-01-04] MEDS: DOCUSATE SODIUM 100 MG CAPSULE PO SCH ×3 (00:10→23:54)
[2021-01-04] MEDS: ATORVASTATIN 20 MG TABLET PO SCH ×2 (00:10→23:57)
[2021-01-04 01:14] VITALS: BP_SYST 126
--- NOTE | 2021-01-04 02:05 | NUR ---
paged Dr. Vaz [phone]
[2021-01-04 07:04] LABS: BASOPHILS % (AUTO) 0.6 % (0.0-2.0); EOSINOPHILS # (AUTO) 0.1 K/uL (0.0-0.4); EOSINOPHILS % (AUTO) 1.4 % (0.0-4.0); HEMATOCRIT 27.3 % (36-54); HEMOGLOBIN 9.2 g/dL (14.0-18.0); LYMPHOCYTES # (AUTO) 0.4 K/uL (1.0-5.5); LYMPHOCYTES % (AUTO) 4.5 % (20.5-51.5); MEAN CORPUSCULAR HEMOGLOBIN 33 pg (27-31); MEAN CORPUSCULAR HGB CONC 34 % (32-36); MEAN CORPUSCULAR VOLUME 97 fL (79.0-98.0); MONOCYTES # (AUTO) 0.6 K/uL (0.0-1.0); MONOCYTES % (AUTO) 7.4 % (1.7-9.3); NEUTROPHILS # (AUTO) 6.8 K/uL (1.8-7.7); NEUTROPHILS % (AUTO) 86.1 % (40.0-70.0); PLATELET COUNT (AUTO) 123 K/uL (130-430); RED CELL DISTRIBUTION WIDTH 14.2 % (9.0-15.0); WHITE BLOOD COUNT (AUTO) 7.9 K/uL (4.8-10.8)
[2021-01-04] MEDS: FUROSEMIDE 40 MG TABLET PO SCH (08:55)
[2021-01-04] MEDS: FENOFIBRATE NANOCRYSTALLIZED 48 MG TABLET (TRICOR) PO SCH (08:55)
[2021-01-04 09:07] VITALS: BP_SYST 119
[2021-01-04] MEDS: NORMAL SALINE 5 ML DISP.SYRIN IVF SCH ×2 (09:07→13:50)
[2021-01-04 10:10] LABS: ALANINE AMINOTRANSFERASE 21 U/L (12-78); ALBUMIN 2.8 g/dL (3.4-4.8); ANION GAP 12 (5-15); ASPARTATE AMINOTRANSFERASE 12 U/L (10-37); CALCIUM 8.6 mg/dL (8.4-11.0); CHLORIDE 106 mmol/L (98-107); CREATININE 3.64 mg/dL (0.55-1.30); GLUCOSE 143 mg/dL (70-99); PHOSPHORUS 7.2 mg/dL (2.7-4.5); POTASSIUM 4.5 mmol/L (3.5-5.1); SODIUM SERUM 142 mmol/L (136-145); TOTAL BILIRUBIN 0.7 mg/dL (0.0-1.0); UREA NITROGEN, BLOOD 50 mg/dL (8-21)
[2021-01-04 10:30] LABS: C-REACTIVE PROTEIN QUANT 8.6 mg/dL (0-0.5)
[2021-01-04 12:22] LABS: ERYTHROCYTE SEDIMENTATION RATE 50 MM/HR (0-15)
[2021-01-04 12:48] VITALS: BP_SYST 125
--- NOTE | 2021-01-04 16:15 | NUR ---
MD Magallanes Paged at [phone] spoke with
--- NOTE | 2021-01-04 16:30 | NUR ---
NURSING NOTES: 0720AM: PATIENT IS RESTING IN BED QUIETLY. NO ADDITIONAL DISTRESS NOTED. BED IN LOW AND LOCK POSITION. BED ALARM ON. CURRENTLY ON BIPAP 02 SAT 93%. CALL LIGHT WITHIN REACH. STABLE CONDITION AT THIS TIME. WILL CONT TO MONITOR. 0800AM: EXPLAINED PLAN OF CARE AND PATIENT VERBALIZED UNDERSTANDING. WILL CONT TO MONITOR. 0810AM: RT SWITCH TO HIGH FLOW 15L SO THAT THE PATIENT CAN EAT BREAKFAST. 02 SAT 93%. WILL CONT TO MONITOR. 0900AM: PATIENT ONLY ATE 2 SCOOP OF SCRAMBLE EGGS AND REFUSED TO EAT. PER PATIENT, HE DOES NOT HAVE ANY APPETITE AND RATHER REST SINCE HE DIDNT SLEEP WELL LAST NIGHT. WILL CONT TO MONITOR. 0910AM: SWITCH BACK TO BIPAP. 02 SAT 93%. NO ADDITIONAL DISTRESS NOTED. 1000AM: PATIENT RESTING IN BED, ASLEEP. WILL CONT TO MONITOR. 1200PM: PATIENT IS RESTING IN BED. ENCOURAGE PATIENT TO EAT BUT PATIENT DOES NOT HAVE ANY APPETITE. 1215PM: SWITCH TO HIGH FLOW 12L 02 SAT 93%. NO ADDITIONAL DISTRESS NOTED. GAVE PATIENT SANDWICH HE REQUESTED. 1300: PATIENT ONLY ATE 1/3 OF HIS SANDWICH AND DRANK 120ML OF WATER. PATIENT WANTS TO SLEEP AT THIS TIME. NO ADDITIONAL DISTRESS NOTED. CURRENTLY ON HIGH FLOW OXYMIZER 12L 02 SAT 96%. PER RT, SHE WILL LET HIM BE ON HF AT THIS TIME SINCE PATIENT 02 SAT IS WNL. 1400: CHG BATH PERFORMED. FACE WASH AND TEETH BRUSHED. GOWN CHANGED WELL. 1600: PATIENT'S SON "TABITHA" AT THE BEDSIDE AND EXPLAINED TO HIM PLAN OF CARE. PATIENT IS RESTING IN BED. CURRENTLY ON HF 12L 02 SAT 99%. SOB ON EXERTION NOTED. WILL CONT TO MONITOR. 1630: PAGED DR WILLIAMSON REGARDING ORDER FOR ABG. NOTED PATIENT LABORED BREATHING WHEN ASLEEP. 02 SAT 99%. HR 37 ASLEEP. 46 HR WHEN AWAKE. AWAITING FOR CALL BACK.
[2021-01-04 17:16] VITALS: BP_SYST 118
--- NOTE | 2021-01-04 19:15 | NUR ---
1800: PATIENT IS TRYING TO EAT HIS DINNER. NO ADDITIONAL DISTRESS NOTED. CURRENTLY ON HF 12L 02 SAT 99%. WILL CONT TO MONITOR. 1845: PATIENT ONLY ATE 10% OF DINNER. PER PATIENT, HE DOESNT REALLY EAT ALOT. DENIES SOB OR DISTRESS AT THIS TIME. DID GIVE INSULIN COVERAGE THROUGHOUT THE SHIFT DUE TO PATIENT PO INTAKE OF MEAL WAS ONLY 10% SINCE AM. CURRENT BS IS 159. STABLE CONDITION THROUGHOUT THE SHIFT. PULSHIMA GRACIA DID NOT CALL BACK. WILL ENDORSE TO NEXT SHIFT. 191: SBAR REPORT GIVEN TO NIGHT RN. PATIENT IS RESTING IN BED. NO ADDITIONAL DISTRESS NOTED. CURRENTLY ON HF 12L NC 02 SAT 99%. PATIENT WILL BE ON BIPAP WHEN ASLEEP.
[2021-01-04 20:00] VITALS: BP_SYST 120
[2021-01-04] MEDS: lisinopriL 20 MG TABLET PO SCH (23:56)
[2021-01-04] MEDS: DOXYCYCLINE HYCLATE 100 MG CAPSULE PO SCH (23:57)
[2021-01-05] VITALS (16 sets, daily range): BP systolic 77–132
[2021-01-05] MEDS: APIXABAN 2.5 MG TABLET PO SCH (00:01)
--- NOTE | 2021-01-05 07:30 | NUR ---
Opening Notes Patient is laying in bed, alert and oriented x3. Able to state name, and time of day. Lethargic. HR is noted at 35-40 BPM. Pt is awake at this time. Nurse followed up with Dr. Vaz about possible ICU transfer. Per Dr. Vaz, patient is off his Amiodarone and BP med that affect his HR. It will take a couple days to get out of his system." Nurse notified charge nurse. Pt is noted with moderate SOB, pt remains on BiPAP @ 40%. Pt is being seen and examined by RT. IV site on left FA 20 gauge intact, saline lock, infiltration rate 1+. FC draining by gravity, hematuria noted. Pt remains on bedrest at this time. Nurse will monitor HR and follow up with MD Lenz for further orders. All needs met. Safety and fall precautions in place. Bed in lowest position, alarm on, locked. Will continue to monitor.
[2021-01-05 08:01] LABS: ANION GAP 3 (5-15); CALCIUM 8.6 mg/dL (8.4-11.0); CHLORIDE 103 mmol/L (98-107); GLUCOSE 166 mg/dL (70-99); POTASSIUM 4.8 mmol/L (3.5-5.1); SODIUM SERUM 129 mmol/L (136-145); UREA NITROGEN, BLOOD 62 mg/dL (8-21)
[2021-01-05 08:07] LABS: ALANINE AMINOTRANSFERASE 24 U/L (12-78); ALBUMIN 2.8 g/dL (3.4-4.8); ASPARTATE AMINOTRANSFERASE 12 U/L (10-37); TOTAL BILIRUBIN 0.6 mg/dL (0.0-1.0)
[2021-01-05] MEDS: levETIRAcetam 500 MG TABLET PO SCH ×2 (09:41→22:26)
[2021-01-05] MEDS: DOCUSATE SODIUM 100 MG CAPSULE PO SCH ×2 (09:41→22:26)
[2021-01-05] MEDS: DOXYCYCLINE HYCLATE 100 MG CAPSULE PO SCH ×2 (09:41→22:26)
[2021-01-05] MEDS: FENOFIBRATE NANOCRYSTALLIZED 48 MG TABLET (TRICOR) PO SCH (09:42)
--- NOTE | 2021-01-05 10:00 | NUR ---
Notes/Low HR/Hypotension%. Patients is noted with low HR, 28-35 BPM. Nurse provided sternal rub to stimulate patient, HR 25-40 BPM. Pt is able to state name and events. Pt remains on BiPAP @ 40%, saturating at 91%. Hypotension, 77/63. Charge nurse following up with MD Lenz for ICU transfer.
[2021-01-05 10:38] LABS: BASOPHILS % (AUTO) 0.4 % (0.0-2.0); EOSINOPHILS # (AUTO) 0.1 K/uL (0.0-0.4); HEMATOCRIT 27.7 % (36-54); HEMOGLOBIN 9.2 g/dL (14.0-18.0); LYMPHOCYTES # (AUTO) 0.3 K/uL (1.0-5.5); LYMPHOCYTES % (AUTO) 4.8 % (20.5-51.5); MEAN CORPUSCULAR HEMOGLOBIN 32 pg (27-31); MEAN CORPUSCULAR HGB CONC 33 % (32-36); MEAN CORPUSCULAR VOLUME 97 fL (79.0-98.0); MONOCYTES # (AUTO) 0.6 K/uL (0.0-1.0); MONOCYTES % (AUTO) 8.2 % (1.7-9.3); NEUTROPHILS % (AUTO) 85.6 % (40.0-70.0); PLATELET COUNT (AUTO) 124 K/uL (130-430); RED BLOOD CELL COUNT(AUTO) 2.84 MIL/uL (4.2-6.2); RED CELL DISTRIBUTION WIDTH 14.1 % (9.0-15.0); WHITE BLOOD COUNT (AUTO) 7.1 K/uL (4.8-10.8)
--- NOTE | 2021-01-05 10:48 | NUR ---
Heart Rate Late entry 10:31 Long pause on the monitor at 4.79 secs. HR at 30 following pause. patient is on a bipap in bed with eyes closed. Able to arouse patient by shaking. BP 77/[address] Lenz of event. Order received to transfer patient to ICU. Son Perez notified of patient's transfer
--- NOTE | 2021-01-05 11:24 | NUR ---
Dr Vaz notified about pt now in ICU order received to give Atropine 0.5mg ivp x1 and if not effective to start pt on Dopamine drip
--- NOTE | 2021-01-05 11:30 | NUR ---
@1108 Pt received into ICU room 5 and bedside report received from KOMAL TALAVERA. On assumption of pt care heart rate was in 30'S,bradycardia pt awake alert x3 coherent, orientation to the unit, education on care plan, tachypneic, shortness of breadth noted, oxygen via oxymizer o2 sat 94%, call light at reach bed in low position encouraged to call for help, support to alleviates anxiety. Addendum: 01/05/21 at 1723 by Yashira Nicholas RN pt HR in 30's asymptomatic denies chest pain no dizziness, no heart palpitation and no complain
--- NOTE | 2021-01-05 11:32 | NUR ---
Pt's son Perez visits at the bedside education on pt's condition, ongoing tx, visiting hours to ICU, pt's vitals signs hr in 30"s encouraged to ask questions, visit, he is responsible for his father care and lives same house with pt.
[2021-01-05] MEDS ORDERED: ATROPINE SULFATE 1 MG/10 ML SYRINGE IVP ONE (11:45)
[2021-01-05] MEDS: NORMAL SALINE 5 ML DISP.SYRIN IVF SCH ×3 (12:00→22:00)
[2021-01-05] MEDS: ALBUTEROL SULFATE 0.083% 2.5 MG/3 ML VIAL.NEB INH PRN ×2 (12:17)
--- NOTE | 2021-01-05 12:25 | NUR ---
Ultrasound abdomen, pelvis completed at the bedside also bladder checked it was empty. Thorne irrigated with normal saline because urine blood tinged but it was patent along the line no resudual and no blood clots noted
--- NOTE | 2021-01-05 12:28 | NUR ---
Dr Vidales notified about pt's transfer from Tele to ICU now on Bipap Fio2 40% ipap 12 Epap 6 rate 18 new order received ABG now .
--- NOTE | 2021-01-05 12:37 | NUR ---
Dr Aviles notified about pt's condition generalized edema, shortness of breadth, bloody low urine output with elevated BUN/ Creatinine 62/4.8 no new order received and said he will be here to see pt.
[2021-01-05] MEDS: DOPamine PREMIX 250 ML IV PRN ×2 (12:48→12:53)
[2021-01-05] MEDS: INSULIN REGULAR, HUMAN 100 UNITS/ML, 10 ML VIAL (humuLIN R) SUBCUT PRN ×3 (13:12→22:49)
--- NOTE | 2021-01-05 13:30 | NUR ---
@1253 Heart rate still in 30's even after Atropine 0.5mg ivp given not effective now started on Dopamine drip @5mcg/kg/min pt tolerating well no complain and no adverse reaction to meds noted. Effective intervention HR now 60's to 70s sinus rhythm.
[2021-01-05] MEDS ORDERED: SODIUM BICARBONATE 8.4% JECT 50 MEQ/50 ML SYRINGE IVP ONE (13:45)
--- NOTE | 2021-01-05 13:48 | NUR ---
Notified Dr Vidales about pt's ABG result PH 7.246, PCO2 46.1, PO2 84.8, HCO3 19.6 while pt on BIPAP 40% RATE 18 01/11 order received to give Sodium Bicarbonate 1 amp and change bipap rate to 22
--- NOTE | 2021-01-05 14:30 | NUR ---
PT off unit for CT scan chest abdomen and pelvis completed done pt tolerated well.
--- NOTE | 2021-01-05 15:00 | NUR ---
PICC line inserted on right upper arm, chest xray done for placement verification and okay to use.
--- NOTE | 2021-01-05 16:02 | NUR ---
NO PHYSICAL THERAPY PERFORMED. PATIENT HAVING LOW HEART RATE WITH LOW BP. NURSING ADVICE TO HOLD UNTIL MEDICALLY STABLE
--- NOTE | 2021-01-05 17:45 | NUR ---
COMPLETE CHG BED BATH GIVEN CERDA, ORAL CARE DONE PT TOLERATED WELL
--- NOTE | 2021-01-05 19:28 | NUR ---
Change of shift report to FLORI TALAVERA CN for continuity of care as at this time no changes in care plan and pt's condition vitals signs stable still on Dopamine drip
--- NOTE | 2021-01-05 20:00 | NUR ---
ASSESSMENT Pt resting quietly. Oxymizer @ 5L/min in use. Saturation in low 90s. Right upper arm with PICC dressing intact. 20ga left forearm, 18ga RAC both patent no redness or swelling noted @ sites. Thorne draining blood tinge urine, small amount noted in bag.
[2021-01-05] MEDS: ATORVASTATIN 20 MG TABLET PO SCH (22:25)
[2021-01-06] VITALS (24 sets, daily range): BP systolic 103–156
[2021-01-06] MEDS: DOPamine PREMIX 250 ML IV PRN ×4 (00:08→23:01)
--- NOTE | 2021-01-06 04:00 | NUR ---
PAIN Pt c/o low back pain. He is unable to describe the pain or what worsens the pain. Vicodin was given earlier for back pain, pt was quiet for a short time, and started to c/o back pain again. Ativan 1mg given IVP per MD orders.
[2021-01-06] MEDS: NORMAL SALINE 5 ML DISP.SYRIN IVF SCH ×3 (06:00→21:50)
[2021-01-06 06:52] LABS: BASOPHILS # (AUTO) 0.1 K/uL (0.0-0.2); BASOPHILS % (AUTO) 0.6 % (0.0-2.0); EOSINOPHILS # (AUTO) 0.1 K/uL (0.0-0.4); EOSINOPHILS % (AUTO) 0.7 % (0.0-4.0); HEMATOCRIT 27.3 % (36-54); HEMOGLOBIN 9.4 g/dL (14.0-18.0); LYMPHOCYTES # (AUTO) 0.3 K/uL (1.0-5.5); MEAN CORPUSCULAR HEMOGLOBIN 33 pg (27-31); MEAN CORPUSCULAR HGB CONC 35 % (32-36); MEAN CORPUSCULAR VOLUME 96 fL (79.0-98.0); MONOCYTES # (AUTO) 0.8 K/uL (0.0-1.0); MONOCYTES % (AUTO) 8.3 % (1.7-9.3); NEUTROPHILS # (AUTO) 8.2 K/uL (1.8-7.7); NEUTROPHILS % (AUTO) 87.4 % (40.0-70.0); PLATELET COUNT (AUTO) 143 K/uL (130-430); RED BLOOD CELL COUNT(AUTO) 2.84 MIL/uL (4.2-6.2); RED CELL DISTRIBUTION WIDTH 14.2 % (9.0-15.0); WHITE BLOOD COUNT (AUTO) 9.4 K/uL (4.8-10.8)
--- NOTE | 2021-01-06 07:20 | NUR ---
Opening Received report from concrete buster operator RN using SBAR format. Pt resting comfortably, no sign of immediate distress. Bed locked in lowest position. All safety checks have been completed.
[2021-01-06 07:22] LABS: ALANINE AMINOTRANSFERASE 21 U/L (12-78); ALBUMIN 2.7 g/dL (3.4-4.8); ANION GAP 14 (5-15); ASPARTATE AMINOTRANSFERASE 21 U/L (10-37); CALCIUM 7.5 mg/dL (8.4-11.0); CHLORIDE 105 mmol/L (98-107); CREATININE 5.66 mg/dL (0.55-1.30); GLUCOSE 142 mg/dL (70-99); POTASSIUM 5.2 mmol/L (3.5-5.1); SODIUM SERUM 143 mmol/L (136-145); TOTAL BILIRUBIN 0.3 mg/dL (0.0-1.0); UREA NITROGEN, BLOOD 69 mg/dL (8-21)
--- NOTE | 2021-01-06 07:30 | NUR ---
Rounding Dr Milind matos at bedside, updated on pt status. No new orders
--- NOTE | 2021-01-06 07:55 | NUR ---
PAGED PAGED CATRACHO BROOKS AT [phone] SPOKE WITH TONO.
--- NOTE | 2021-01-06 08:03 | NUR ---
CONSULTATION PAGED: PRIORITY: ROUTINE REASON FOR CONSULTATION:DIALYSIS CATHETER PLACEMENT WAS CONSULT CALLED:Y PERSON WHO WAS NOTIFIED:NORMA CONSULTING PHYSICIAN:SHERI ULLOA WELFARE VISITOR SPECIALTY:SURGEON WELFARE VISITOR PHONE NUMBER:[phone] REQUESTING PHYSIC AL:CATRACHO BROOKS
[2021-01-06] MEDS: DOCUSATE SODIUM 100 MG CAPSULE PO SCH ×2 (09:00→20:27)
--- NOTE | 2021-01-06 09:45 | NUR ---
Switched pt to oxymizer 6L. Oxygen saturation is maintaining about 94%
[2021-01-06] MEDS: DOXYCYCLINE HYCLATE 100 MG CAPSULE PO SCH ×2 (10:20→20:27)
[2021-01-06] MEDS: levETIRAcetam 500 MG TABLET PO SCH ×2 (10:20→20:28)
[2021-01-06] MEDS: FENOFIBRATE NANOCRYSTALLIZED 48 MG TABLET (TRICOR) PO SCH (10:23)
--- NOTE | 2021-01-06 11:40 | NUR ---
Rounding Dr Aviles rounding at bedside, updated on pt status. Spoke to son at bedside regarding hemodialysis and witnessed consent. No new orders
--- NOTE | 2021-01-06 12:00 | NUR ---
Rounding Dr Lenz roundrosa at beside, updated on pt status. No new orders received
--- NOTE | 2021-01-06 15:00 | NUR ---
Heart rate dropped to 30s Pt heart rate dropped to high 30s-low 40s. Called Dr Vaz. Obtained new orders
--- NOTE | 2021-01-06 18:23 | NUR ---
Insulin coverage Pt has not had any oral intake or fluids all day due to lethargy and lack of appetite. Per sliding scale label comments spoke to Dr Lira regarding whether or not to hold the insulin. He instructed me to hold the insulin for dinner coverage.
[2021-01-06] MEDS ORDERED: HEPARIN SODIUM,PORCINE 5,000 UNITS/ML VIAL ONE (19:19)
[2021-01-06] MEDS: ATORVASTATIN 20 MG TABLET PO SCH (20:28)
--- NOTE | 2021-01-06 20:29 | NUR ---
patient fsbs 210 mg/dL physician gave verbal order to hold insulin patient is not eating or drinking at this time. will continue to monitor this patient closely for any acute changes.
--- NOTE | 2021-01-06 22:02 | NUR ---
PAGED DR. COMBS NURSE AIDE FOR DR. WILLIAMSON ORDERS [phone] SPOKE WITH JAYDEN
[2021-01-06] MEDS: guaiFENesin 200 MG/CODEINE 20 MG/ 10 ML UDC PO PRN (22:32)
[2021-01-07] VITALS (24 sets, daily range): BP systolic 96–146
[2021-01-07] MEDS: DOPamine PREMIX 250 ML IV PRN ×2 (04:24→21:04)
[2021-01-07] MEDS: NORMAL SALINE 5 ML DISP.SYRIN IVF SCH ×3 (06:09→21:39)
--- NOTE | 2021-01-07 06:10 | NUR ---
patient fsbs 249 mg/dL no insulin given per physician because patient is not eating or drinking at this time. will continue to monitor this patient closely for any acute changes.
[2021-01-07 06:34] LABS: BASOPHILS % (AUTO) 0.5 % (0.0-2.0); EOSINOPHILS % (AUTO) 0.2 % (0.0-4.0); HEMATOCRIT 26.8 % (36-54); HEMOGLOBIN 8.9 g/dL (14.0-18.0); LYMPHOCYTES # (AUTO) 0.2 K/uL (1.0-5.5); LYMPHOCYTES % (AUTO) 2.6 % (20.5-51.5); MEAN CORPUSCULAR HEMOGLOBIN 33 pg (27-31); MEAN CORPUSCULAR HGB CONC 33 % (32-36); MEAN CORPUSCULAR VOLUME 98 fL (79.0-98.0); MONOCYTES # (AUTO) 0.6 K/uL (0.0-1.0); NEUTROPHILS % (AUTO) 88.7 % (40.0-70.0); PLATELET COUNT (AUTO) 118 K/uL (130-430); RED BLOOD CELL COUNT(AUTO) 2.74 MIL/uL (4.2-6.2); RED CELL DISTRIBUTION WIDTH 14.2 % (9.0-15.0); WHITE BLOOD COUNT (AUTO) 7.8 K/uL (4.8-10.8)
[2021-01-07 06:45] LABS: ALANINE AMINOTRANSFERASE 16 U/L (12-78); ALBUMIN 2.4 g/dL (3.4-4.8); ANION GAP 11 (5-15); ASPARTATE AMINOTRANSFERASE 13 U/L (10-37); CALCIUM 7.9 mg/dL (8.4-11.0); CHLORIDE 102 mmol/L (98-107); CREATININE 6.62 mg/dL (0.55-1.30); GLUCOSE 266 mg/dL (70-99); SODIUM SERUM 139 mmol/L (136-145); TOTAL BILIRUBIN 0.4 mg/dL (0.0-1.0); UREA NITROGEN, BLOOD 73 mg/dL (8-21)
--- NOTE | 2021-01-07 08:00 | NUR ---
late entry did note pt barnes had dark cransberry color urine noted md aware also pt scrotum is very swollen; barnes cath was flushed with some effect
[2021-01-07] MEDS: DOCUSATE SODIUM 100 MG CAPSULE PO SCH ×2 (09:05→20:14)
[2021-01-07] MEDS: DOXYCYCLINE HYCLATE 100 MG CAPSULE PO SCH (09:05)
[2021-01-07] MEDS: levETIRAcetam 500 MG TABLET PO SCH ×2 (09:05→20:14)
[2021-01-07] MEDS: FENOFIBRATE NANOCRYSTALLIZED 48 MG TABLET (TRICOR) PO SCH (09:06)
--- NOTE | 2021-01-07 09:15 | NUR ---
RN NOTES DR. SANTOS HERE TO SEE PATIENT, SPOKE TO FAMILY REGARDING PLAN OF CARE.
[2021-01-07] MEDS ORDERED: HEPARIN SODIUM,PORCINE 5,000 UNITS/ML VIAL ONE ×2 (12:25→12:27)
--- NOTE | 2021-01-07 13:11 | NUR ---
pt yinka dialysis well took off 2 liters pt remains on Dobutamine drip at 10 mcg/hr and Dopamine at 15 mcg/hr/ and d5w @ 30cclhr overall appearances fair denies pain/discomfort at this time afrebile, vss
--- NOTE | 2021-01-07 15:45 | NUR ---
RT NOTES took pt off the bipap, pt is awake, appears to respond appropriately. no distress noted. 94% sat on 6L oxymizer. will monitor pt.
--- NOTE | 2021-01-07 16:41 | NUR ---
Dietitian Recommendations * CCHO, renal diet w/ Nepro BID (ONS provides 840 kcal/day, 38 gm protein/day) * Encourage increase PO intakes LP, RD Please refer Nutrition Assessment for details. Addendum: 01/07/21 at [address] Amended: Links added.
[2021-01-07] MEDS: INSULIN REGULAR, HUMAN 100 UNITS/ML, 10 ML VIAL (humuLIN R) SUBCUT PRN ×2 (17:26→20:22)
--- NOTE | 2021-01-07 17:30 | NUR ---
RT NOTES Pt cont. to tolerate 6L oxymizer, saturation 93%. no distress noted. pt is responding to simple questions appropriately.
--- NOTE | 2021-01-07 19:01 | NUR ---
pt condition remains stable back on 6Lvia nc at 1600 cont rec'ing dobutamine at 10mcg/min/hr, dopamine at 15 mcg/min/hr and d5w at 30ml/hr last accu ck 223mg/dl did rec'ing 4 U reg insulin pt was fed appetite only 20% yinka well denies pain/discomfort safety and comfort maintained
[2021-01-07] MEDS: guaiFENesin 200 MG/CODEINE 20 MG/ 10 ML UDC PO PRN (20:13)
[2021-01-07] MEDS: ATORVASTATIN 20 MG TABLET PO SCH (20:14)
[2021-01-08] VITALS (24 sets, daily range): BP systolic 90–142
[2021-01-08] MEDS: DOPamine PREMIX 250 ML IV PRN ×4 (02:42→21:47)
[2021-01-08] MEDS: NORMAL SALINE 5 ML DISP.SYRIN IVF SCH ×3 (05:52→21:06)
[2021-01-08] MEDS: INSULIN REGULAR, HUMAN 100 UNITS/ML, 10 ML VIAL (humuLIN R) SUBCUT PRN ×3 (05:59→20:58)
[2021-01-08] MEDS: D5W 1,000 ML IV PRN ×2 (06:03→20:48)
[2021-01-08 06:23] LABS: BASOPHILS # (AUTO) 0.1 K/uL (0.0-0.2); BASOPHILS % (AUTO) 0.5 % (0.0-2.0); EOSINOPHILS # (AUTO) 0.1 K/uL (0.0-0.4); EOSINOPHILS % (AUTO) 0.8 % (0.0-4.0); HEMOGLOBIN 9.1 g/dL (14.0-18.0); LYMPHOCYTES # (AUTO) 0.3 K/uL (1.0-5.5); MEAN CORPUSCULAR HEMOGLOBIN 32 pg (27-31); MEAN CORPUSCULAR HGB CONC 34 % (32-36); MEAN CORPUSCULAR VOLUME 96 fL (79.0-98.0); MONOCYTES # (AUTO) 0.8 K/uL (0.0-1.0); MONOCYTES % (AUTO) 8.3 % (1.7-9.3); NEUTROPHILS # (AUTO) 8.8 K/uL (1.8-7.7); NEUTROPHILS % (AUTO) 87.4 % (40.0-70.0); PLATELET COUNT (AUTO) 127 K/uL (130-430); RED BLOOD CELL COUNT(AUTO) 2.81 MIL/uL (4.2-6.2); RED CELL DISTRIBUTION WIDTH 14.2 % (9.0-15.0)
[2021-01-08] MEDS: ALBUTEROL SULFATE 0.083% 2.5 MG/3 ML VIAL.NEB INH PRN (07:56)
[2021-01-08] MEDS: IPRATROPIUM BROM 0.5 MG/2.5 ML VIAL.NEB (ATROVENT) INH PRN (07:56)
[2021-01-08 08:16] LABS: ALANINE AMINOTRANSFERASE 18 U/L (12-78); ALBUMIN 2.5 g/dL (3.4-4.8); ANION GAP 13 (5-15); ASPARTATE AMINOTRANSFERASE 16 U/L (10-37); CHLORIDE 98 mmol/L (98-107); CREATININE 4.85 mg/dL (0.55-1.30); GLUCOSE 176 mg/dL (70-99); POTASSIUM 3.9 mmol/L (3.5-5.1); SODIUM SERUM 136 mmol/L (136-145); TOTAL BILIRUBIN 0.3 mg/dL (0.0-1.0); UREA NITROGEN, BLOOD 39 mg/dL (8-21)
[2021-01-08] MEDS: DOCUSATE SODIUM 100 MG CAPSULE PO SCH ×2 (09:14→20:47)
[2021-01-08] MEDS: FENOFIBRATE NANOCRYSTALLIZED 48 MG TABLET (TRICOR) PO SCH (09:14)
[2021-01-08] MEDS: levETIRAcetam 500 MG TABLET PO SCH ×2 (09:14→20:47)
--- NOTE | 2021-01-08 11:50 | NUR ---
CENTRAL LINE DIALYSIS NURSE CAME IN. TRANSPARENT DRESSING FROM RIGHT IJ REMOVED, CLEANED AREA, OPSITE TO SITE AND COVERED WITH TRANSPARENT DRESSING.
--- NOTE | 2021-01-08 12:30 | NUR ---
DIET SUPERVISED PT AT LUNCH HOUR, ONLY HAD 2 SPOONFULS OF TACOS MIXTURE, PT WEAK AND TIRED, OFFERED TO DRINK NEPRO AND HAD FEW SIPS.
--- NOTE | 2021-01-08 14:00 | NUR ---
GENITO URINARY PT'S CERDA CATHETER OBSERVED WITH TINY FIBRIN CLOT, IRRIGATED CATHETER WITH 40 ML STERILE WATER TO CLEAN OUT TUBE.
--- NOTE | 2021-01-08 14:40 | NUR ---
FAMILY PT'S SON TABITHA AND HIS GRANDDAUGHTER AT BEDSIDE, UPDATE GIVEN ON HIS STATUS.
[2021-01-08] MEDS ORDERED: HEPARIN SODIUM, PORCINE 10,000 UNITS/ 10 ML VIAL MC ONE (17:00)
[2021-01-08] MEDS ORDERED: HEPARIN SODIUM,PORCINE 5,000 UNITS/ML VIAL ONE (17:04)
[2021-01-08] MEDS: ATORVASTATIN 20 MG TABLET PO SCH (20:46)
[2021-01-08] MEDS: guaiFENesin 200 MG/CODEINE 20 MG/ 10 ML UDC PO PRN (20:47)
[2021-01-09] VITALS (25 sets, daily range): BP systolic 100–155
[2021-01-09] MEDS: DOPamine PREMIX 250 ML IV PRN ×4 (04:07→18:36)
[2021-01-09] MEDS: NORMAL SALINE 5 ML DISP.SYRIN IVF SCH ×3 (06:03→22:37)
[2021-01-09] MEDS: INSULIN REGULAR, HUMAN 100 UNITS/ML, 10 ML VIAL (humuLIN R) SUBCUT PRN ×3 (06:11→22:34)
[2021-01-09 07:14] LABS: BASOPHILS % (AUTO) 0.5 % (0.0-2.0); EOSINOPHILS # (AUTO) 0.1 K/uL (0.0-0.4); HEMATOCRIT 26.7 % (36-54); HEMOGLOBIN 9.1 g/dL (14.0-18.0); LYMPHOCYTES # (AUTO) 0.3 K/uL (1.0-5.5); LYMPHOCYTES % (AUTO) 3.9 % (20.5-51.5); MEAN CORPUSCULAR HEMOGLOBIN 33 pg (27-31); MEAN CORPUSCULAR HGB CONC 34 % (32-36); MEAN CORPUSCULAR VOLUME 95 fL (79.0-98.0); MONOCYTES # (AUTO) 0.7 K/uL (0.0-1.0); MONOCYTES % (AUTO) 9.2 % (1.7-9.3); NEUTROPHILS # (AUTO) 6.4 K/uL (1.8-7.7); NEUTROPHILS % (AUTO) 85.4 % (40.0-70.0); PLATELET COUNT (AUTO) 110 K/uL (130-430); RED BLOOD CELL COUNT(AUTO) 2.81 MIL/uL (4.2-6.2); RED CELL DISTRIBUTION WIDTH 13.8 % (9.0-15.0); WHITE BLOOD COUNT (AUTO) 7.4 K/uL (4.8-10.8)
[2021-01-09 07:19] LABS: ALANINE AMINOTRANSFERASE 20 U/L (12-78); ALBUMIN 2.2 g/dL (3.4-4.8); ANION GAP 11 (5-15); ASPARTATE AMINOTRANSFERASE 21 U/L (10-37); CALCIUM 7.5 mg/dL (8.4-11.0); CHLORIDE 95 mmol/L (98-107); CREATININE 3.85 mg/dL (0.55-1.30); GLUCOSE 178 mg/dL (70-99); POTASSIUM 3.7 mmol/L (3.5-5.1); SODIUM SERUM 130 mmol/L (136-145); TOTAL BILIRUBIN 0.4 mg/dL (0.0-1.0); UREA NITROGEN, BLOOD 25 mg/dL (8-21)
--- NOTE | 2021-01-09 07:20 | NUR ---
RECEIVED PT FROM ILAN GUARDADO. PT IS AAOX1, GARBLED SPEECH. NSR WITH FIRST DEGREE BLOCK. PT IN OXYMIZER 6LPM, RESP E/U. RHONCHI NOTED TO BILATERAL UPPER LOBES. PT ON RENAL REG DIET. CERDA CATH IN PLACE, PT ANURIC. R PICC LINE 2 LUMENT, R JAIR CATH, R AND L FA IV CATH. ALL SITE PATENT, FLUSHED, WNL, DRESSINGS CDI. NO S/S OF PAIN NOTED.
--- NOTE | 2021-01-09 08:42 | NUR ---
DR. PONCE AT BEDSIDE TO ASSESS PT. REPORTED NA 130, DR. PONCE STATED THE NA WILL CORRECT ITSELF. NNOS AT THIS TIME.
--- NOTE | 2021-01-09 09:20 | NUR ---
DR. COMBS AT BEDSIDE, STATED PLEASE TAKE OFF DOBUTAMINE, B/P 119/54 (86), DOBUTAMINE TURNED OFF.
[2021-01-09] MEDS: FENOFIBRATE NANOCRYSTALLIZED 48 MG TABLET (TRICOR) PO SCH (09:41)
[2021-01-09] MEDS: DOCUSATE SODIUM 100 MG CAPSULE PO SCH ×2 (09:43→21:00)
[2021-01-09] MEDS: levETIRAcetam 500 MG TABLET PO SCH ×2 (09:43→21:00)
--- NOTE | 2021-01-09 10:27 | NUR ---
B/P 110/40 (73), PT GROGGY, WAS ABLE TO TAKE PO MEDS CRUSHED WITH APPLE SAUCE, TOLERATED WELL WITH ASSISTANCE OF SMALL SIPS, SMALL BITES. ASPIRATION PRECAUTIONS MAINTAINED. PT DENIES PAIN.
--- NOTE | 2021-01-09 12:09 | NUR ---
REPORTED TO DR. SANTOS PT HAS MILD COUGH AFTER ATTEMPTING TO FEED WITH SMALL BITE OF BREAKFAST. RECEIVED ORDER TO D/C DIET, SWALLOW EVAL BY SPEECH THERAPY. ILAN WILLINGHAM CHARGE STATED SHE CONTACTED THE S/T.
--- NOTE | 2021-01-09 12:27 | NUR ---
PT'S BLOOD SUGAR 166, INSULIN INDICATED PER RISS BUT HELD, PT IS NPO FOR SPEECH EVAL.
[2021-01-09] MEDS: ALBUTEROL SULFATE 0.083% 2.5 MG/3 ML VIAL.NEB INH PRN (13:20)
[2021-01-09] MEDS: IPRATROPIUM BROM 0.5 MG/2.5 ML VIAL.NEB (ATROVENT) INH PRN (13:21)
--- NOTE | 2021-01-09 13:33 | NUR ---
PT HS SOB AND IS BREATHING PREDOMINENTLY THROUGH THE MOUTH, 02 SAT 92%. R/T CALLED TO BEDSIDE PT PLACED ON NRB MASK AT AT 10LPM, PLACED IN HIGH FOWLERS POSITION. 02 SAT AT 96%. WILL CONTINUE TO MONITOR. ILAN HENRIQUEZ CHARGE MADE AWARE OF PT'S CHANGE IN BREATHING PATTERN.
--- NOTE | 2021-01-09 13:48 | NUR ---
ABG OBTAINED. PT B/P 85/43, DOPAMINE INCREASED TO 16MCG/KG/MIN. PT PLACED ON BIPAP, SETTINGS: 01/11, RR 22, FI02 100%. WILL CONTINUE TO MONITOR AND TITRATE NEEDED.
--- NOTE | 2021-01-09 14:00 | NUR ---
RECEIVED ABG RESULT, PAGED DR. COMBS TO REPORT CRITICAL VALUES, AWAITING CALL BACK.
--- NOTE | 2021-01-09 14:33 | NUR ---
REPORTED TO DR. HOYT CRITICAL ABG RESULTS, NNOS AT THIS TIME.
--- NOTE | 2021-01-09 14:40 | NUR ---
Nutrition F/U RD reviewed pt's current EMR record including diet Hx, physician notes, nursing notes, pertinent labs/meds/procedures, care trends, and care activity. Admission Dx: CHF PMH: skin CA, DM, HLD, chronic anticoagulation therapy, HTN per physician notes Pt also found w/ CAP/pneumonia, CHF, DM 2, CKD/DM nephropathy, hypoxic respiratory failure per physician notes SARS-CoV-2 Ag (Rapid) Negative 01/01 Current Diet Order/Nutrition Support: N/A Subjective Info: RD rounded to ICU and spoke w/ pt's primary RN who reported that pt was unable to safely eat PO today as he was very lethargic and has a chronic cough. RD visited pt's room while undergoing dialysis today. Pt is pending ST swallow eval. Pt is receiving D5% at 30 ml/hr at this time (122 kcal/day). Pt is not meeting nutritional needs. Pertinent Medications: Reviewed Pertinent Labs: Reviewed Height (Feet) 5 feet Height (Inches) 8.00 inches Weight (Pounds) 194 pounds (01/07) -- NEW WT: 200#/91 kg (01/09) -- *Note 6# increase in 2 days, likely r/t fluid shifts a/w CHF Weight (Calculated Kilograms) 87.741594 kilograms Patient Weight 87.997 kg Body Mass Index 29.49 kg/m2 Usual Weight 190 lbs %UBW 102 %IBW 128 [place]/Adjusted Body Weight 154#/70 kg. 164#/75 kg Weight Status Overweight Estimated Energy Expenditure (kcals/day) 3364-0746 kcal/day (30-35 kcal/kg IBW d/t acute state) Estimated Protein Required (g/day) 84-105 gm/day (1.2-1.5 gm/kg IBW d/t GERIAT status, CKD/HD) Estimated Fluid Required (l/day) Per physician d/t CHF/CKD Problem/Etiology/Signs/Symptoms Inadequate nutritional intakes related to lack of appetite as evidenced by poor PO intake records. *ongoing Suspected swallowing difficulty related to unknown etiology as evidenced by pending ST swallow eval and RN report. *new Expected Outcomes/Goals - Monitor appetite and PO intakes w/ goal of pt meeting at least 75% of estimated nutritional needs, labs trending WNL, normal GI function, and skin integrity/wt maintenance Dietitian Recommendations * Consider ST swallow eval results and rec prior to diet advancement * Add diabetic therapeutic restrictions and Glucerna BID ONS if/when medically appropriate Follow Up High Risk: F/U in 2-3 days
--- NOTE | 2021-01-09 14:45 | NUR ---
Dietitian Recommendations * Consider ST swallow eval results and rec prior to diet advancement * Add diabetic therapeutic restrictions and Glucerna BID ONS if/when medically appropriate LP, RD Please refer to Nutrition F/U for details.
[2021-01-09] MEDS ORDERED: ALBUMIN HUMAN 25% 100 ML IV ONE ×2 (14:58→15:00)
--- NOTE | 2021-01-09 15:00 | NUR ---
MAP 62 DPPAMINE INCREASED TO 18MCG/KG/MIN, WILL CONTINUE TO MONITOR AND TITRATE NEEDED. Addendum: 01/09/21 at 1539 by Keith Ibrahim production checker CLARIFICATION -DOPAMINE
--- NOTE | 2021-01-09 15:07 | NUR ---
ALBUMIN 25%, 100ML IV GIVEN TO DIALISIS NURSE TO BE TRANSFUSED.
[2021-01-09] MEDS ORDERED: HEPARIN SODIUM,PORCINE 5,000 UNITS/ML VIAL ONE (15:22)
--- NOTE | 2021-01-09 15:26 | NUR ---
HEPARIN 2 5000 UNIT VIALS GIVEN TO HD NURSE, MEDS WOULD NOT SCAN.
--- NOTE | 2021-01-09 15:39 | NUR ---
HD COMPLETED AT THIS TIME. 1.7 LITERS FLUID REMOVED.
[2021-01-09] MEDS ORDERED: HEPARIN SODIUM, PORCINE 10,000 UNITS/ 10 ML VIAL MC ONE (15:45)
[2021-01-09] MEDS: D5W 1,000 ML IV PRN (16:19)
--- NOTE | 2021-01-09 16:27 | NUR ---
B/P 138/54 (92), HR 64, DOPAMINE TITRATED DOWN TO 16MCG/KG/MIN. WILL CONTINUE TO MONITOR AND TITRATE NEEDED.
--- NOTE | 2021-01-09 16:46 | NUR ---
1648 placed pt on bipap due to distress. titrated fi02 to100. abg done. rn aware. will cont to monitor. Addendum: 01/09/21 at 1650 by Dorene Cota RT Amended: Links added. Addendum: 01/09/21 at 1651 by Dorene Cota RT time correction [id number].
--- NOTE | 2021-01-09 16:52 | NUR ---
1648 fio2 titrated to .90.... sat 100%. rn aware. will cont to monitor. Addendum: 01/09/21 at 1652 by Dorene Cota RT Amended: Links added.
--- NOTE | 2021-01-09 19:38 | NUR ---
ENDORSED ALL CARE TO ILAN BRITO. ALL QUESTIONS AND CONCERNS ADDRESSED.
--- NOTE | 2021-01-09 20:00 | NUR ---
RECEIVED REPORT ON PATIENT FROM JENELLE TALAVERA, ASSUMED CARE, AND STARTED ASSESSMENT.
[2021-01-09] MEDS: ATORVASTATIN 20 MG TABLET PO SCH (21:00)
[2021-01-09] MEDS ORDERED: NOREPINEPHRINE 4 MG/4 ML VIAL IV ONE (21:19)
--- NOTE | 2021-01-09 21:20 | NUR ---
PATIENT HAD AN EPISODE OF LOW BLOOD PRESSURE AND BRADYCARDIA. THE HEART RATE DROPPED TO THE 30'S AND THE BLOOD PRESSURE SBP WENT BELOW THE 70'S THE DOBUTAMINE WAS STARTED AND THE DOPAMINE WAS TURNED UP TO 20 MICS FROM 16. PATIENT QUICKLY RECOVERED AND THE DOPAMINE WAS ADJUSTED DOWN WELL THE DOBUTAMINE. WILL CONTINUE TO MONITOR AND ASSESS FOR SAFETY AND COMFORT.
--- NOTE | 2021-01-09 21:20 | NUR ---
PAGED DR. COMBS/ DR. SOTOMAYOR FUNCTIONAL MANAGER [phone] ORDER SPOKE WITH BARBARA
[2021-01-10] VITALS (26 sets, daily range): BP systolic 90–151
[2021-01-10] MEDS: DOPamine PREMIX 250 ML IV PRN ×5 (02:07→21:15)
[2021-01-10] MEDS: NORMAL SALINE 5 ML DISP.SYRIN IVF SCH ×3 (06:21→21:11)
[2021-01-10] MEDS: INSULIN REGULAR, HUMAN 100 UNITS/ML, 10 ML VIAL (humuLIN R) SUBCUT PRN ×4 (06:48→21:16)
[2021-01-10 07:19] LABS: BASOPHILS # (AUTO) 0.1 K/uL (0.0-0.2); BASOPHILS % (AUTO) 0.7 % (0.0-2.0); EOSINOPHILS # (AUTO) 0.3 K/uL (0.0-0.4); HEMATOCRIT 24.3 % (36-54); HEMOGLOBIN 8.6 g/dL (14.0-18.0); LYMPHOCYTES # (AUTO) 0.2 K/uL (1.0-5.5); LYMPHOCYTES % (AUTO) 2.3 % (20.5-51.5); MEAN CORPUSCULAR HEMOGLOBIN 34 pg (27-31); MEAN CORPUSCULAR HGB CONC 36 % (32-36); MEAN CORPUSCULAR VOLUME 95 fL (79.0-98.0); MONOCYTES # (AUTO) 0.9 K/uL (0.0-1.0); NEUTROPHILS # (AUTO) 8.5 K/uL (1.8-7.7); PLATELET COUNT (AUTO) 116 K/uL (130-430); RED BLOOD CELL COUNT(AUTO) 2.56 MIL/uL (4.2-6.2); RED CELL DISTRIBUTION WIDTH 13.7 % (9.0-15.0)
--- NOTE | 2021-01-10 07:20 | NUR ---
Opening Received report from endorsing RN. Pt awake, confused, on bipap, noted in distress with leads off and bipap mask slightly off/misplaced saturating 85%. Repositioned mask, pt saturating 95% on FiO2 75%, pt able to follow simple commands. Bilateral wrist restraints in place for safety, no skin breakdown noted. LUE with weeping edema. Thorne in place draining urine to gravity. HOB elevated, bed locked in lowest position.
--- NOTE | 2021-01-10 07:26 | NUR ---
Dr. Vidales rounding on pt, new orders made for consult with endocrine.
--- NOTE | 2021-01-10 07:49 | NUR ---
CONSULTATION PAGED/CALLED Reason for Consultation: [] ELEVATED TSH Person Who was Notified: [] LEFT A VOICE MESSAGE Consulting Physician: [] DR HARP M Tap Puller Specialty: [] ENDOCRINE Ordering Physician: [] DR COMBS
[2021-01-10 08:58] LABS: ALANINE AMINOTRANSFERASE 18 U/L (12-78); ALBUMIN 2.7 g/dL (3.4-4.8); ANION GAP 10 (5-15); ASPARTATE AMINOTRANSFERASE 20 U/L (10-37); CALCIUM 8.1 mg/dL (8.4-11.0); CHLORIDE 92 mmol/L (98-107); CREATININE 4.59 mg/dL (0.55-1.30); GLUCOSE 184 mg/dL (70-99); POTASSIUM 3.7 mmol/L (3.5-5.1); SODIUM SERUM 128 mmol/L (136-145); TOTAL BILIRUBIN 0.5 mg/dL (0.0-1.0); UREA NITROGEN, BLOOD 32 mg/dL (8-21)
[2021-01-10] MEDS: DOCUSATE SODIUM 100 MG CAPSULE PO SCH ×2 (09:00→20:45)
[2021-01-10] MEDS: FENOFIBRATE NANOCRYSTALLIZED 48 MG TABLET (TRICOR) PO SCH (09:00)
[2021-01-10] MEDS: levETIRAcetam 500 MG TABLET PO SCH (09:00)
--- NOTE | 2021-01-10 11:30 | NUR ---
Pt found with bipap mask off face, desaturating to 75%. Repositioned mask, O2 saturation increase to 95% within minutes of replacing mask.
--- NOTE | 2021-01-10 12:34 | NUR ---
Updates given to pt's son, Perez Givens. Informed and educated Perez regarding pt's current status, situation, and possible intubation. Perez states understanding and states, "If he needs to be on a ventilator, please put him on a ventilator." Also informed Perez regarding pt's wrist restraints, states understanding.
--- NOTE | 2021-01-10 15:27 | NUR ---
Informed Nursing Shipping Clerk Crating Ban CARSON: HD order for tomorrow 01/11/21. Handed her the HD order in the NS office.
--- NOTE | 2021-01-10 16:45 | NUR ---
Pt's son Perez at bedside. Updates given, questions answered.
--- NOTE | 2021-01-10 18:47 | NUR ---
Closing Pt remains on bipap fiO2 100%, saturating 100%. On dobutamine and dopamine drips and IVF. Thorne with minimal output. Possible dialysis tomorrow per Dr. Aviles. Bilateral soft wrist restraints in place for safety. Will endorse plan of care to RN.
[2021-01-10] MEDS ORDERED: COMMUNICATION ORDER XX ONE (19:30)
[2021-01-10] MEDS ORDERED: *TPN PER PHARMACY XX PRN (19:30)
[2021-01-10] MEDS: ATORVASTATIN 20 MG TABLET PO SCH (20:45)
[2021-01-10] MEDS ORDERED: levETIRAcetam 500 MG IV PREMIX 100 ML IV SCH (21:00)
[2021-01-11] VITALS: BP_SYST 123
[2021-01-11] MEDS: DOPamine PREMIX 250 ML IV PRN (00:49)
[2021-01-11] MEDS: D5W 1,000 ML IV PRN (00:50)
[2021-01-11 01:00] VITALS: BP_SYST 117
[2021-01-11 02:00] VITALS: BP_SYST 109
[2021-01-11 03:00] VITALS: BP_SYST 103
[2021-01-11] MEDS ORDERED: ATROPINE SULFATE 1 MG/10 ML SYRINGE IVP ONE ×2 (03:29→06:23)
--- NOTE | 2021-01-11 03:41 | NUR ---
PAGED DR. SOTOMAYOR ORDERS [phone] SPOKE WITH EUNICE
--- NOTE | 2021-01-11 03:45 | NUR ---
PAGED DR. GOODMAN [phone] SPOKE TO ROSALIE
[2021-01-11] MEDS ORDERED: EPINEPHrine JECT 0.1 MG/ML SYR ONE ×2 (03:55→03:56)
[2021-01-11 04:00] VITALS: BP_SYST 0
[2021-01-11] MEDS ORDERED: LORazepam 2 MG/ML VIAL ONE (04:12)
--- NOTE | 2021-01-11 04:46 | NUR ---
NOTIFIED OF PATIENT EXPIRATION DR. GOODMAN [phone] SPOKE WITH MATT
--- NOTE | 2021-01-11 04:51 | NUR ---
[facility] called [facility] notified of pt , spoke with Wilton. Case released, case # [id number].
--- NOTE | 2021-01-11 04:55 | NUR ---
0320 noted HR 40-41 BP-91/39, sats-86%,ATSO4-1 mg given dobutamine increase to 12 mcg, and called RT to come check patient as his not breathing good on BIPAP, obtunded, released restraints his not fighting anymore.0335 ABG done,compensated respiratory acidosis ph-7.1, pCo2-85, PO2-95,HCo3-25, called Dr. Vidalse called Dr. quesada called back at 0405 aware were coding the patient, 346 call code HR-35 AtSO4 given 1 mg CPR started, team came and ER MD marques Hernandez present at bedside,intubated patient given 1 amp Na Bicarb, 1 amp Mg so4 and 9 amp epi, ROSC came @ 0411 then he was seizing ativan 2 mg IV push given, called son to informed the event he said he will be in in 5 mins. 414 son came and witness the code, given another round of epinephrine 0420 ROSC came but HR 36, no BP and sats-28% Md spoke to son and son decided to stop after another round philippe sienna at bedside and witness everything and talking to his Dad to go meet his in [facility]. 0440 asystole on monitor, HR-0, BP-0/0, pronounce by Dr Marques Hernandez. [address] Lira application engineer for Dr Lenz. 0450 called [facility] [id number] [phone] called coroners Deputy Mcdowell release the body.
--- NOTE | 2021-01-11 05:30 | NUR ---
CONSULT MDs INFORMED OF EXPIRATION DR. HERNANDEZ [phone] DR. PONCE [phone] DR. MERCHANT [phone] SPOKE WITH TONO REINOSO [phone] SPOKE WITH CLEMENTE
--- NOTE | 2021-01-11 05:30 | NUR ---
rt notes responded to blake ken called at [address] Hernandez at bedside. assisted in the intubation of patient. ROSC achieved at 0411. patient continued to genaro despite of CPR. patients son informed of the situation, patients son said he would come in 5 minutes. patients son at bedside wishes to continue CPR. ROSC achieved at 0420. patient continues to be genaro in the low 30's. no blood pressure. saturation in the low 20's. ED Dr. Hernandez informed son of the situation. patients son wishes to no longer continue with CPR. patient continues to be asystole despite CPR. patient pronounced by ED Dr Hernandez at 0440.
--- NOTE | 2021-01-11 05:50 | NUR ---
0455 called [facility] body has plot reservation they will come and take body soon will call back for ETA. 0545 post Mortem care done, placed on body bag with 3 name tags, lines and tubings removed 0556 Dania came and took body to [facility].
[2021-01-11] MEDS ORDERED: NORMAL SALINE 10 ML VIAL IVP ONE (06:23)
[2021-01-11] MEDS ORDERED: SODIUM BICARBONATE 8.4% JECT 50 MEQ/50 ML SYRINGE IVP ONE (06:23)
[2021-01-11] MEDS ORDERED: EPINEPHrine JECT 0.1 MG/ML SYR IVP ONE (06:23)
[2021-01-11] MEDS ORDERED: MAGNESIUM SULFATE 8 MEQ/2 ML IV ONE (06:23)
== END 2021-01-11 06:24 | DRG 871 ==
LOC: SED 18:13 → STU 22:49 → EEVIPCON 22:49 → STU 23:04 → SIC 01-05 11:09
PROVIDERS: ADMIT Internal Medicine Hospice and Palliative Medicine; ATTEND Internal Medicine Hospice and Palliative Medicine
PROC: 5A09357 Assistance with Respiratory Ventilation, Less than 24 Consecutive Hours, Continuous Positive Airway Pressure (ICD-10-PCS; 2021-01-01)
PROC: 5A09457 Assistance with Respiratory Ventilation, 24-96 Consecutive Hours, Continuous Positive Airway Pressure (ICD-10-PCS; 2021-01-03)
PROC: 02HV33Z Insertion of Infusion Device into Superior Vena Cava, Percutaneous Approach (ICD-10-PCS; principal; 2021-01-06)
PROC: B548ZZA Ultrasonography of Superior Vena Cava, Guidance (ICD-10-PCS; 2021-01-06)
PROC: 5A1D70Z Performance of Urinary Filtration, Intermittent, Less than 6 Hours Per Day (ICD-10-PCS; 2021-01-06)
PROC: 5A1D70Z Performance of Urinary Filtration, Intermittent, Less than 6 Hours Per Day (ICD-10-PCS; 2021-01-07)
PROC: 5A09357 Assistance with Respiratory Ventilation, Less than 24 Consecutive Hours, Continuous Positive Airway Pressure (ICD-10-PCS; 2021-01-07)
PROC: 5A1D70Z Performance of Urinary Filtration, Intermittent, Less than 6 Hours Per Day (ICD-10-PCS; 2021-01-08)
PROC: 5A09457 Assistance with Respiratory Ventilation, 24-96 Consecutive Hours, Continuous Positive Airway Pressure (ICD-10-PCS; 2021-01-09)
PROC: 5A1D70Z Performance of Urinary Filtration, Intermittent, Less than 6 Hours Per Day (ICD-10-PCS; 2021-01-10)
DX: A41.9 Sepsis, unspecified organism (principal); J18.9 Pneumonia, unspecified organism; J96.01 Acute respiratory failure with hypoxia; J96.02 Acute respiratory failure with hypercapnia; I50.43 Acute on chronic combined systolic (congestive) and diastolic (congestive) heart failure; I13.0 Hypertensive heart and chronic kidney disease with heart failure and stage 1 through stage 4 chronic kidney disease, or unspecified chronic kidney disease; N17.9 Acute kidney failure, unspecified; I42.9 Cardiomyopathy, unspecified; I48.20 Chronic atrial fibrillation, unspecified; J44.0 Chronic obstructive pulmonary disease with (acute) lower respiratory infection; E11.22 Type 2 diabetes mellitus with diabetic chronic kidney disease; N18.9 Chronic kidney disease, unspecified; C44.90 Unspecified malignant neoplasm of skin, unspecified; E78.5 Hyperlipidemia, unspecified; E11.21 Type 2 diabetes mellitus with diabetic nephropathy; D64.9 Anemia, unspecified; E11.65 Type 2 diabetes mellitus with hyperglycemia; E88.09 Other disorders of plasma-protein metabolism, not elsewhere classified; Z20.822 Contact with and (suspected) exposure to COVID-19; E87.5 Hyperkalemia; E66.9 Obesity, unspecified; Z85.828 Personal history of other malignant neoplasm of skin; Z79.899 Other long term (current) drug therapy; Z79.01 Long term (current) use of anticoagulants; Z79.4 Long term (current) use of insulin; Z87.891 Personal history of nicotine dependence; Z68.30 Body mass index [BMI] 30.0-30.9, adult
CPT/HCPCS: 36415; 36600; 71045; 71250-TC; 71275; 76376; 76604; 76700-TC; 76770; 80053; 80061; 81000; 82803-TC; 82962; 83605; 83735; 83880; 84100; 84443; 84479; 84484; 85025; 85379; 85610-TC; 85651-TC; 85730-TC; 86140; 86738; 86886; 86900; 86901; 87040-TC; 87081; 90935; 90937; 92950; 93005; 93306; 94640; 94660; 94760; 96365; 96366; 96367; 96368; 97110-GP; 97112-GP; 97163-GP; 97530-GP; 99291; G0378; J0171; J0360; J0461; J0696; J1265; J1644; J1815; J1940; J1953; J2060; J2405; J2543; J3370; J3475; J3490; J7060; J7613; P9046; Q9967